=== PATIENT | female | born 1975 | race Caucasian/White ===

== ENCOUNTER 2019-07-22 06:36 | Inpatient (IN) ==
[2019-07-22] MEDS ORDERED: NS 1,000 ML IV ONE ×2 (06:47→06:53)
[2019-07-22] MEDS ORDERED: TYLENOL PO ONE (06:50)
[2019-07-22] MEDS ORDERED: ZITHROMAX 500 MG/NS 500 MG/250 ML IVPB IV ONE (06:56)
[2019-07-22] MEDS ORDERED: ROCEPHIN 1 GM in NS 50 ML IV ONE (06:56)
--- NOTE | 2019-07-22 07:04 | PROVIDER DOCUMENTATION ---
HPI-General Adult - General Chief Complaint: Palpitations Stated Complaint: PALPITATIONS Time Seen by Provider: 07/22/19 06:55 Source: patient Allergies/Adverse Reactions: Patient Allergies Allergy/AdvReac Type Severity Reaction Status Date / Time No Known Allergies Allergy Verified 07/22/19 06:48 - History of Present Illness -Gen Adult Nature of Presenting Problems: A 43 Y/O FEMALE PRESENTS WITH C/O ELEVATED HEART RATE, NOT FEELING GOOD SINCE YESTERDAY. THE PT WAS AT A GAME YESTERDAY DID NOT FEEL GOOD, TRIED TO SLEEP LAST NIGHT AND IT WAS DISTURBED. WOKE UP THIS MORNING AND DID NOT FEEL GREAT AND HAD A ELEVATED HEART RATE. CAME TO WORK SO THAT SHE CAN BE CHECKED BY THE [employer] SHE WORKS A RN IN OR. SHE WAS SENT TO ED FOR FURTHER EVAL. PT IS FEBRILE IN ER, SAYS DOES NOT FEEL GOOD. HAS BEEN HAVING DIARRHEA FOR ONE WEEK, HAS HAD 3 LOOSE BM IN THE LAST 24 HRS. DENIES ANY CP OR SOB. DENIES ANY RECENT ABXS USE. DENIES ANY HEADACHE, LIGHTHEADEDNESS OR DIZZINESS. PT HAS HX OF THYROID CANCER AND HAD A THYROIDECTOMY IN PAST. WAS RECENTLY DX WITH PCKD BY DR PAUL. Location of Pain/Injury: reports: none Pain Radiation: reports: no radiation Review of Systems - Adult - REVIEW OF SYSTEMS - ADULT Constitutional: reports: see HPI, chills, fever Eyes: denies: no symptoms reported Ears, Nose, Mouth & Throat: denies: no symptoms reported Cardiovascular: denies: no symptoms reported Respiratory: denies: no symptoms reported Gastrointestinal: reports: see HPI Genitourinary: reports: see HPI Musculoskeletal: reports: see HPI Integumentary: denies: no symptoms reported Neurological: denies: no symptoms reported Psychiatric: reports: see HPI, anxiety Endocrine: denies: no symptoms reported Hematologic/Lymphatic: denies: no symptoms reported Allergic/Immunologic: denies: no symptoms reported Past History - Adult - PAST MEDICAL HISTORY-ADULT Review of Records: reports: Old Records Reviewed, Nursing Assessment Review, Medications Reviewed, Social history reviewed & non-contributory. Physical Exam-General - PHYSICAL EXAM-ADULT Initial Vital Signs Reviewed: Yes - CONSTITUTIONAL General Appearance: alert, mild distress, anxious - EYES Eyes: PERRL/EOMI - HEAD, EARS, NOSE, MOUTH & THROAT HENMT: normocephalic/atraumatic, moist mucous membranes, normal ENT inspection, TMs normal, pharynx normal - NECK Neck: supple - RESPIRATORY Respiratory: lungs clear, normal breath sounds, no respiratory distress, no accessory muscle use - CARDIOVASCULAR Cardiovascular: no JVD, no murmur, tachycardia - GASTROINTESTINAL (ABDOMEN) Abdominal Exam: normal bowel sounds, non tender, soft - MUSCULOSKELETAL Back Exam: no vertebral tenderness, CVA tenderness Extremity: no pedal edema, no calf tenderness Peripheral Pulses: radial (R): 2+, radial (L): 2+ - SKIN Integumentary: normal color, warm/dry - NEUROLOGIC Neurologic: grossly normal - PSYCHIATRIC Psych/Mental Status: normal thought content, normal thought process, oriented x 3, anxious Progress - PLAN OF CARE/RESULTS Progress/Plan/Lab Results: Vital Signs - 8 hr 07/22/19 06:37 Temperature 101.9 F H Pulse Rate 116 H Respiratory Rate 18 Blood Pressure 149/88 O2 Sat by Pulse Oximetry 94 L Orders Category Date Time Status CHEST-PORTABLE [RAD] Stat Exams 07/22/19 06:46 Taken BLOOD CULTURE [BLDCUL] Stat Lab 07/22/19 06:46 Uncollected C DIFF TOXIN [STOOL] Stat Lab 07/22/19 06:52 Uncollected CBC WITH DIFF [HEME] Stat Lab 07/22/19 06:52 Ordered COMPREHENSIVE METABOLIC PANEL [CHEM] Stat Lab 07/22/19 06:52 Ordered DIRECT STREP Stat Lab 07/22/19 06:50 Ordered INFLUENZA SCREEN A/B Stat Lab 07/22/19 06:50 Uncollected LACTATE, PLASMA [CHEM] Stat Lab 07/22/19 06:52 Ordered UA NIMS W/REFLEX CULT [URINALYSIS] Stat Lab 07/22/19 06:46 Uncollected 0.9% Sodium Chloride Inj [Ns] 1,000 ml Med 07/22/19 06:47 Active IV 999 mls/hr 0.9% Sodium Chloride Inj [Ns] 1,000 ml Med 07/22/19 06:53 Active IV 999 mls/hr Acetaminophen [Tylenol] Med 07/22/19 06:50 Discontinued 1,000 mg PO NOW ONE Azithromycin 500 mg/Ns [Zithromax 500 mg/Ns] Med 07/22/19 06:56 Ordered 500 mg in 250 ml IV NOW Rocephin 1 gm/Ns IV Now Med 07/22/19 06:56 Ordered CefTRIAXONE [Rocephin] 1 gm 0.9% Sodium Chloride Inj [Ns] 50 ml IV NOW EKG [EKG] Stat Ther 07/22/19 06:47 Ordered Result Diagrams: 07/22/19 06:42 07/22/19 06:42 - REASSESSMENT Reassessment #1 Time Reassessed: 07:58 Status: improving (Seen and examined by me at shift change, case discussed with Dr. Hammond. 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 Given 2L of IVF, IV toradol and po acetaminophen, IV Rocephin/zithromax/vanc. Has pneumonia and sepsis, but not severe sepsis as there is no) - XRAY 1 XRAY Study: Chest Impression: Abnormal, See EMR Report (CHEST-PORTABLE - 07/22/2019 INDICATION: chest pain COMPARISON: None FINDINGS: There are ill-defined infiltrates in both lung bases. Heart size and pulmonary vascularity is normal. No pneumothorax or pleural effusion. IMPRESSION: Bibasilar infiltrates suggestive of bronchopneumonia. Correlate clinically. Electronically signed by Sy Markham 07/22/2019 7:30 AM 07/22/19729 Interpreting Physician: Sy Markham MD Dictated Date/Time: 07/22/19729 cc: Micky Hammond MD; Liam Cullen) - CONSULTS/PCP/HOSPITALIST Notification #1 *Consult/PCP/Hospitalist*: ERICKSON Nazario hospitalist Time Discussed: 08:02 Consult Disposition: Admit (to Dr. Carlton) - CHANGE OF SHIFT REPORT (ED Provider) 1 Report Given and Care Transferred to:: DR VILLALPANDO Time of Transfer: 07:00 Items Pending: Labs, XRAY Results Departure - Departure Date of Disposition Decision: 07/22/19 Time of Disposition Decision: 08:02 DIAGNOSIS: Community acquired bilateral lower lobe pneumonia Sepsis without acute organ dysfunction Qualifiers: Sepsis type: sepsis due to unspecified organism Qualified Code(s): A41.9 - Sepsis, unspecified organism Disposition: ADMITTED INPATIENT 09 Certified Medical Emergency: Emergent Condition: Fair Referrals and Follow-Ups: Liam Cullen [Primary Care Provider] - - Critical Care Note This patient required my direct & personal management of CC.: Yes Total Time (mins): 35 (patient with sepsis, treatment for PNE, multiple abx) Critical Care Statement: This patient required my direct personal management to treat or rule out processes, the absence of which, could potentiallly result in sudden, clinically significant life or limb threatening deterioration. Attestation - Physician/ CONNIE Attestation Patient care was provided by Advanced Practice Provider:: No The physician spent face to face time with patient:: Yes Advanced Practice Provider documentation review:: Supervising physician onsite and consulted in the evaluation and care of this patient. The physician did have a face to face encounter with the patient.
[2019-07-22 07:12] LABS: URINE SOURCE CATH
[2019-07-22 07:24] LABS: BILIRUBIN URINE SMALL (NEGATIVE); BLOOD URINE SMALL (NEGATIVE); COLOR YELLOW; GLUCOSE URINE NEGATIVE (NEGATIVE); KETONE URINE NEGATIVE (NEGATIVE); LEUKOCYTES URINE NEGATIVE (NEGATIVE); NITRITE URINE NEGATIVE (NEGATIVE); PROTEIN URINE 100 mg/dL (NEGATIVE); SP GRAVITY URINE 1.029; TURBIDITY URINE HAZY (CLEAR); UROBILINOGEN URINE 8 mg/dL (NORMAL)
[2019-07-22 07:29] LABS: UR EPITHELIAL CELLS >10 /HPF (<10); URINE BACTERIA 1+ /HPF; URINE RBC <10 /HPF (<10); URINE WBC <10 /HPF (<10)
--- NOTE | 2019-07-22 07:32 | Diag Imaging Result Doc PS360 ---
CHEST-PORTABLE - 07/22/2019 INDICATION: chest pain COMPARISON: None FINDINGS: There are ill-defined infiltrates in both lung bases. Heart size and pulmonary vascularity is normal. No pneumothorax or pleural effusion. IMPRESSION: Bibasilar infiltrates suggestive of bronchopneumonia. Correlate clinically. Electronically signed by Sy Markham 07/22/2019 7:30 AM
[2019-07-22 07:37] LABS: BASO# 0.02 X1000 (0.0-0.2); BASO% 0.1 % (0.0-0.8); HEMATOCRIT 35.8 % (37.0-47.0); HEMOGLOBIN 12.5 g/dL (12.0-16.0); IMM GRAN% 0.6 % (0.0-0.5); LYMPH# 0.95 X1000 (1.2-3.4); LYMPH% 5.5 % (20.5-51.1); MCH 28.9 PG (27-31); MCHC 34.9 g/dL (33-37); MCV 82.7 FL (81-99); MONO# 0.51 X1000 (0.11-0.59); MPV 11.7 FL (7.4-10.4); NEUT# 15.68 X1000 (1.4-6.5); NEUT% 90.8 % (42.2-75.2); PLT 376 X1000 (130-400); RBC 4.33 XMIL (4.2-5.4); RDW 13.3 % (11.5-14.5); WBC 17.26 X1000 (4.8-10.8)
--- NOTE | 2019-07-22 07:39 | EKG Report ---
Test Performed on : 07/22/2019 06:35:04 AM Test Reason : PALPITATIONS Blood Pressure : / mmHG Vent. Rate : 123 BPM Atrial Rate : 123 BPM P-R Int : 130 ms QRS Dur : 088 ms QT Int : 318 ms P-R-T Axes : 073 073 042 degrees QTc Int : 455 ms Sinus tachycardia. Possible Left atrial enlargement Septal infarct , age undetermined Abnormal ECG No previous ECGs available Unconfirmed Result
[2019-07-22 07:40] LABS: URINE CASTS NONE SEEN; URINE CRYSTALS NONE SEEN; URINE SMALL ROUND CELLS NONE SEEN; URINE YEAST NONE SEEN
[2019-07-22 07:48] LABS: AGAP 15; ALB/GLOB RATIO 0.8; ALBUMIN 3.4 g/dL (3.5-5.0); ALKALINE PHOSPHATASE 312 U/L (32-104); BUN 15 mg/dL (8-22); CALCIUM 9.5 mg/dL (8.8-10.2); CHLORIDE 96 mmol/L (98-107); COSMO 266; CREATININE 0.7 mg/dL (0.5-0.9); ESTIMATED GFR > 60; GLUCOSE 105 mg/dL (70-104); GOT 46 U/L (10-30); GPT 38 U/L (10-36); POTASSIUM 3.7 mmol/L (3.5-5.1); SODIUM 132 mmol/L (136-145); TCO2 21 mmol/L (25-35); TOTAL PROTEIN 7.5 g/dL (6.3-8.3)
[2019-07-22] MEDS ORDERED: VANCOMYCIN 1 GM/NS 1 GM/250 ML IVPB IV ONE (07:56)
[2019-07-22 08:14] LABS: LYMPHS 3 % (21-51); MONO 3 % (1-9); SEGS 94 % (42-75)
--- NOTE | 2019-07-22 09:14 | HISTORY AND PHYSICAL ---
PRIMARY CARE PHYSICIAN: Dr. Liam Cullen. CHIEF COMPLAINT: A racing heart rate, headache, shortness of breath and diarrhea for the past week that has progressively worsened. 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 Stated that she had an elevated heart rate, shortness of breath, a fever, diarrhea over the last week that had progressively worsened. When she arrived to the emergency room this morning, she had a temperature of 101.9 degrees, heart rate was 116. She was saturating 94% on room air. Her white blood cell count was 17.26, sodium 132. She had a mild bump in her LFTs with an AST of 46, ALT of 38. Plasma lactate was 1.5. A chest x-ray showed an impression of bibasilar infiltrates suggestive of bronchopneumonia, so she will be admitted for further evaluation and treatment. PAST MEDICAL HISTORY: Thyroid cancer, and this past Thursday was diagnosed by Nephrology with polycystic kidney disease. PAST SURGICAL HISTORY: Thyroidectomy, a bilateral tubal ligation, a breast augmentation and a back surgery. FAMILY HISTORY: Reviewed and noncontributory. SOCIAL HISTORY: She currently lives with her children. Denies any tobacco, alcohol or illicit drug use. ALLERGIES: She has no known drug allergies. HOME MEDICATIONS: We will need to obtain a current list, review and reconcile and restart as appropriate. We will place an order for nursing to update and confirm home medications. LABORATORY DATA: Showed a white blood cell count of 17.26, hemoglobin 12.5, hematocrit 35.8, platelets 376,000. Sodium 132, potassium 3.7, chloride 96, CO2 21, BUN of 15, creatinine 0.7, glucose 105. Total bilirubin 1.20, AST 46, ALT 38, alkaline phosphatase 312. Plasma lactate was 1.5. Urinalysis is negative except for 1+ bacteria. Chest x-ray showed bibasilar infiltrates suggestive of bronchopneumonia. EKG showed sinus tachycardia at 123. REVIEW OF SYSTEMS: She was positive for fever, chills, body aches. Denied any chest pain or cough. She has had shortness of breath. Denied any abdominal pain, constipation. She is positive for diarrhea. No burning or hurting on urination. PHYSICAL EXAMINATION: VITAL SIGNS: On arrival, she had a temperature of 101.9 degrees, pulse 116, respirations 18, blood pressure 149/88, saturating 94% on room air. GENERAL: This is a 43-year-old female who is lying in the bed and answers questions appropriately. HEENT: Normocephalic, atraumatic. Normal ENT inspection. Oropharynx and nares are clear. EYES: Pupils are equal, round, reactive to light and accommodation. Extraocular movements are intact. NECK: Normal inspection. Normal range of motion. LUNGS: With decreased breath sounds to bilateral bases. Equal lung expansion. Chest wall movement noted. HEART: She is noted to be tachycardic but no murmurs, rubs, or gallops noted. ABDOMEN: Soft, nontender, nondistended. Bowel sounds are present x4 quadrants. MUSCULOSKELETAL: She has 5/5 strength x4 extremities. NEUROLOGICAL: The cranial nerves 2-12 appear grossly intact. ASSESSMENT: 1. Sepsis. 2. Bilateral bronchopneumonia. 3. Mild hyponatremia. 4. Mild elevated liver function tests. PLAN: She will be admitted to the medical unit, placed on telemetry, regular diet, incentive spirometry. We will check a Legionella and strep pneumoniae urine and hepatitis profile today. We will place her on Rocephin 1 gram IV q.24, azithromycin 500 IV q.24, DuoNeb q.4 hours, normal saline at 125 mL an hour. We will check an abdomen ultrasound. We will check a stool for Clostridium difficile toxin and recheck CBC, BMP in the a.m. Give her Tylenol 650 mg p.o. q.4 hours for fever, pain, and further orders after seen by attending. Dictated by ERICKSON Hartman for Ovidio Carlton MD cc: ERICKSON Hartman MD agree with the above. the following is my own face to face assessment. patient with crackles at the right base, slightly decreased at the left base. good air entry otherwise. flu swab negative. placing on abx and monitor closely. MTDD
[2019-07-22] MEDS: ULTRAM PO PRN ×3 (10:37→22:53)
[2019-07-22] MEDS: DUONEB (A & A) INH SCH ×4 (11:40→23:21)
[2019-07-22] MEDS: NS 1,000 ML IV SCH ×3 (13:37→23:49)
--- NOTE | 2019-07-22 17:10 | Diag Imaging Result Doc PS360 ---
EXAM: US ABDOMEN-COMPLETE INDICATION: Elevated LFT COMPARISON: None. FINDINGS: The gallbladder appears normal with no stones, wall thickening, or pericholecystic fluid. The common bile duct is normal in diameter. Sonographic Dickerson's sign was reported to be negative. The liver is mildly prominent measuring up to 19.8 cm in length. The liver has a normal echotexture with no discrete mass or cyst identified. Portal venous flow is hepatopetal. The visualized pancreas is unremarkable. The aorta and IVC are grossly unremarkable. The spleen is unremarkable. There are a few small simple renal cysts bilaterally. The kidneys are unremarkable, otherwise. IMPRESSION: Mildly prominent liver. Essentially unremarkable abdominal ultrasound, otherwise. Electronically signed by Kd Lechuga 07/22/2019 5:08 PM
[2019-07-22] MEDS: TYLENOL PO PRN (18:56)
[2019-07-23] MEDS: DUONEB (A & A) INH SCH ×6 (03:51→23:26)
[2019-07-23 05:41] LABS: BASO# 0.01 X1000 (0.0-0.2); BASO% 0.1 % (0.0-0.8); EOS# 0.03 X1000 (0.0-0.7); EOS% 0.2 % (0.0-10.0); HEMATOCRIT 28.6 % (37.0-47.0); HEMOGLOBIN 9.5 g/dL (12.0-16.0); IMM GRAN# 0.03 X1000 (0.0-0.04); IMM GRAN% 0.2 % (0.0-0.5); LYMPH# 0.98 X1000 (1.2-3.4); LYMPH% 7.9 % (20.5-51.1); MCH 28.1 PG (27-31); MCHC 33.2 g/dL (33-37); MCV 84.6 FL (81-99); MONO# 0.28 X1000 (0.11-0.59); MONO% 2.3 % (1.7-9.3); MPV 11.4 FL (7.4-10.4); NEUT# 11.02 X1000 (1.4-6.5); NEUT% 89.3 % (42.2-75.2); PLT 320 X1000 (130-400); RBC 3.38 XMIL (4.2-5.4); RDW 13.6 % (11.5-14.5); WBC 12.35 X1000 (4.8-10.8)
[2019-07-23] MEDS: NS 1,000 ML IV SCH ×3 (05:52→18:07)
[2019-07-23 06:24] LABS: AGAP 13; BUN 11 mg/dL (8-22); CHLORIDE 106 mmol/L (98-107); COSMO 284; CREATININE 0.5 mg/dL (0.5-0.9); ESTIMATED GFR > 60; GLUCOSE 100 mg/dL (70-104); POTASSIUM 3.8 mmol/L (3.5-5.1); SODIUM 143 mmol/L (136-145); TCO2 24 mmol/L (25-35)
[2019-07-23 07:24] LABS: LYMPHS 8 % (21-51); MONO 3 % (1-9); SEGS 89 % (42-75)
[2019-07-23] MEDS ORDERED: ROCEPHIN 1 GM in NS 50 ML IV SCH (07:30)
[2019-07-23] MEDS ORDERED: ZITHROMAX 500 MG/NS 500 MG/250 ML IVPB IV SCH (08:00)
[2019-07-23] MEDS: ULTRAM PO PRN (08:50)
[2019-07-23] MEDS ORDERED: VANCOMYCIN IV PER PHARMACY MISC SCH (11:45)
[2019-07-23] MEDS ORDERED: DUONEB (A & A) INH PRN (12:01)
[2019-07-23 12:04] LABS: ALB/GLOB RATIO 0.9; ALBUMIN 2.7 g/dL (3.5-5.0); DIRECT BILIRUBIN 0.3 mg/dL (0.00-0.20); TOTAL BILIRUBIN 0.69 mg/dL (0.20-1.00); TOTAL PROTEIN 5.6 g/dL (6.3-8.3)
[2019-07-23] MEDS ORDERED: VANCOMYCIN 1,550 MG in NS 250 ML IV ONE (13:00)
[2019-07-23 13:04] LABS: HEMATOCRIT 26.8 % (37.0-47.0); HEMOGLOBIN 9.2 g/dL (12.0-16.0)
--- NOTE | 2019-07-23 13:30 | Diag Imaging Result Doc PS360 ---
EXAM: CHEST-PORTABLE INDICATION: hypoxia, cough TECHNIQUE: One view COMPARISON: 07/22/2019 FINDINGS: There has been significant interval worsening of the airspace consolidations with a basilar predominance seen on the previous study, especially at the right lung base. No other new consolidation is identified. Cardiac silhouette is stable. IMPRESSION: Interval significant worsening of bilateral airspace consolidations. Electronically signed by Kd Lechuga 07/23/2019 1:28 PM
[2019-07-23] MEDS: SYNTHROID PO SCH (13:50)
[2019-07-23] MEDS: MAXIPIME 2 GM in NS 100 ML IV SCH ×2 (13:50→22:43)
[2019-07-23] MEDS: PERCOCET-10 PO PRN ×3 (13:57→22:49)
[2019-07-23] MEDS: ZOFRAN IV PRN ×3 (13:57→22:53)
--- NOTE | 2019-07-23 16:03 | PROGRESS NOTE ---
DATE: 07/23/2019 INTERVAL HISTORY: The patient did well overnight, but this morning has had increased oxygen requirements. She had to be put on non-rebreather. Stat chest x-ray obtained showing significant worsening of pneumonia, especially on the right, but some on the left as well. One low-grade fever overnight which was less than she had on admission, but concern is for worsening bilateral pneumonia. Antibiotics changed to vancomycin and cefepime. Monitor closely, and if respiratory status worsens any further will likely move to the ICU. The patient continues to endorse general malaise, achiness, and cough. The patient was complaining of diarrhea on admission, but has had no bowel movement since arrival. REVIEW OF SYSTEMS: Twelve-point review of systems negative except as per interval history. LABORATORIES: WBC 12.3, hemoglobin 9.2, hematocrit 26.8, platelets 320,000. Sodium 143, potassium 3.8, bicarb 24, chloride 106, BUN 11, creatinine 0, glucose 100, bilirubin 0.69, AST 26, ALT 27, alkaline phosphatase 248. IMAGING: Chest x-ray with interval significant worsening of bilateral airspace consolidations. VITALS: T-max 100.0 degrees, pulse 88, respirations 18, blood pressure 119/70, and O2 saturation 94% on nonrebreather. PHYSICAL EXAMINATION: General: Slight distress. Vitals: As above. HEENT: Normocephalic, atraumatic. Moist mucous membranes. neck: No cervical adenopathy. Cardiovascular: Regular rate and rhythm. No murmurs, rubs, or gallops. Pulmonary: Significant rales in bilateral lower lobes. Scattered rales and rhonchi elsewhere. Good air entry. Abdomen: Soft, nontender, nondistended. Bowel sounds positive. Extremities: Peripheral pulses intact. No clubbing, cyanosis. Neurologic: Cranial nerves grossly intact. Mild global weakness, but no focal deficits. Psychiatric: Normal mood and affect. Awake, alert, oriented x3. Skin: No rashes or lesions identified. ASSESSMENT AND PLAN: 1. Acute hypoxic respiratory failure, pneumonia. The patient presented with dyspnea and cough. She was found to have pneumonia. She was placed on Rocephin and azithromycin for presumed community-acquired pneumonia, but had significant worsening today with significantly-worsened hypoxia and worsened infiltrates on x-ray despite improvement in white count and temperature. Antibiotics changed to cefepime and vancomycin as above. Urine, Legionella, and strep pneumo antigens pending. Continue oxygen as needed, and if any further worsening of her respiratory condition we will plan on moving to the ICU for closer monitoring. Blood cultures: No growth so far. 2. Flu-like illness. The patient presenting with dyspnea, cough, myalgias, and some minor gastrointestinal symptoms. Flu screen negative, but given flu-like symptoms and worsening illness we will go ahead and place her on Tamiflu for possible influenza. 3. Elevated liver function tests likely due to illness trending down. Hepatitis panel pending, but no risk factors identified for hepatitis. Ultrasound showing normal echotexture of the liver with no masses or other significant abnormality. We will monitor. 4. Polycystic kidney disease, recent diagnosis. Kidney function normal and stable. 5. Diarrhea. Complained of diarrhea prior to admission, but has had no bowel movement since arrival here.
[2019-07-23] MEDS: TAMIFLU PO SCH (20:03)
[2019-07-24] MEDS: VANCOMYCIN 1,150 MG in NS 250 ML IV SCH ×2 (00:55→13:30)
[2019-07-24] MEDS: PERCOCET-10 PO PRN ×4 (03:37→19:56)
[2019-07-24] MEDS: ZOFRAN IV PRN ×4 (03:37→19:57)
[2019-07-24] MEDS: NS 1,000 ML IV SCH ×2 (03:41→10:59)
[2019-07-24] MEDS: DUONEB (A & A) INH SCH ×6 (04:05→23:14)
[2019-07-24] MEDS: SYNTHROID PO SCH (06:08)
[2019-07-24 07:54] LABS: BASO# 0.02 X1000 (0.0-0.2); BASO% 0.2 % (0.0-0.8); EOS# 0.06 X1000 (0.0-0.7); EOS% 0.5 % (0.0-10.0); HEMATOCRIT 30.1 % (37.0-47.0); HEMOGLOBIN 10.3 g/dL (12.0-16.0); IMM GRAN# 0.05 X1000 (0.0-0.04); IMM GRAN% 0.4 % (0.0-0.5); LYMPH# 0.71 X1000 (1.2-3.4); LYMPH% 5.5 % (20.5-51.1); MCH 28.6 PG (27-31); MCHC 34.2 g/dL (33-37); MCV 83.6 FL (81-99); MONO# 0.47 X1000 (0.11-0.59); MONO% 3.6 % (1.7-9.3); MPV 10.6 FL (7.4-10.4); NEUT# 11.63 X1000 (1.4-6.5); NEUT% 89.8 % (42.2-75.2); PLT 415 X1000 (130-400); RDW 13.8 % (11.5-14.5); WBC 12.94 X1000 (4.8-10.8)
[2019-07-24 08:02] LABS: AGAP 11; ALB/GLOB RATIO 0.8; ALBUMIN 2.8 g/dL (3.5-5.0); ALKALINE PHOSPHATASE 264 U/L (32-104); BUN 8 mg/dL (8-22); CALCIUM 8.4 mg/dL (8.8-10.2); CHLORIDE 101 mmol/L (98-107); COSMO 271; CREATININE 0.5 mg/dL (0.5-0.9); ESTIMATED GFR > 60; GLUCOSE 86 mg/dL (70-104); GOT 22 U/L (10-30); GPT 25 U/L (10-36); POTASSIUM 3.6 mmol/L (3.5-5.1); SODIUM 137 mmol/L (136-145); TCO2 25 mmol/L (25-35); TOTAL BILIRUBIN 0.74 mg/dL (0.20-1.00); TOTAL PROTEIN 6.1 g/dL (6.3-8.3)
[2019-07-24 08:35] LABS: HEPATITIS PROFILE ACUTE SEE COMMENTS
[2019-07-24 09:37] LABS: BANDS 8 % (0-1); LYMPHS 6 % (21-51); MONO 4 % (1-9); SEGS 82 % (42-75)
[2019-07-24] MEDS: TAMIFLU PO SCH ×2 (09:37→19:56)
[2019-07-24] MEDS: MAXIPIME 2 GM in NS 100 ML IV SCH (11:59)
--- NOTE | 2019-07-24 16:15 | PROGRESS NOTE ---
DATE: 07/24/[address] Liam Cullen. She came in with racing heart, headache, shortness of breath, diarrhea for a week progressively worsened. 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 Stated that she had elevated heart rate, shortness of breath, fever, diarrhea, progressively worse since he arrived the emergency room, had temperature 101.9 degrees, heart rate was 116, O2 saturations were 94% on room air. White blood cell count . Sodium 132, had a mild bump in her transaminases, AST was 46, ALT 38. Plasma lactate was 1.5. Chest x-ray showed impression of bibasilar infiltrates suggesting bronchopneumonia and was admitted for further evaluation. PAST MEDICAL HISTORY: Thyroid cancer diagnosed by Nephrology with polycystic kidney disease recently. SURGICAL HISTORY: Status post thyroidectomy, status post bilateral tubal ligation, breast augmentation, back surgery. So presented what appeared to be infection, possible sepsis, bilateral bronchopneumonia and some mild hyponatremia, elevation liver function test. EXAM: Today, remains afebrile, temperature 98 degrees, pulse 113, respirations 25, blood pressure 127/80. Pupils are equal round.Lungs: Clear in all lung milian. Cardiovascular: Regular rhythm and rate without murmur or S3. Abdomen: Soft. Skin: Warm and dry. Urine output 2200 mL. ASSESSMENT AND PLAN: 1. Acute hypoxic respiratory failure with pneumonia. The patient presented with dyspnea and cough, was found to have pneumonia, placed on Rocephin and azithromycin for presumed community- acquired pneumonia. Had significant worsening when she got here, worsened infiltrates on x- ray despite improvement white blood cell count, temperature. Antibiotics changed to cefepime and vancomycin. Urine Legionella and strep pneumonia antigens pending. Continue present treatment. 2. Flu-like illness presented with dyspnea, cough, myalgias and some minor gastrointestinal symptoms. Flu screen was negative. Flu-like symptoms and worsening illness. We did put her on Tamiflu. 3. Elevated liver function tests due to illness. She has no risk factors for hepatitis. Ultrasound showed normal echotexture of the liver, no masses or significant abnormality. 4. Polycystic disease recent illness. Kidney function normal and stable. 5. Diarrhea, suspect she has a viral illness. 6. Review of her orders she is getting DuoNeb, she is on Synthroid 112 mcg daily, cefepime 2 g IV q.12, normal saline at 125 mL an hour, Tamiflu 75 mg b.i.d., vancomycin 1550 mg IV q.12 and she is improving. LAB: Review of her lab today white count is down to 12,940, hematocrit is 30, hemoglobin 10, platelet count 412,000. Sodium 137, potassium 3.6, chloride 101, BUN 8, creatinine 0.5. Transaminases have come down nicely. cc: Froy Colon MD MTDD
[2019-07-25] MEDS: MAXIPIME 2 GM in NS 100 ML IV SCH ×3 (00:22→23:18)
[2019-07-25] MEDS: TAMIFLU PO SCH ×3 (01:26→20:21)
[2019-07-25] MEDS: VANCOMYCIN 1,150 MG in NS 250 ML IV SCH (02:08)
[2019-07-25] MEDS: NS 1,000 ML IV SCH ×6 (02:09→18:29)
[2019-07-25] MEDS: ZOFRAN IV PRN ×5 (02:52→23:22)
[2019-07-25] MEDS: PERCOCET-10 PO PRN ×5 (02:52→23:18)
[2019-07-25] MEDS: DUONEB (A & A) INH SCH ×6 (03:34→22:35)
[2019-07-25] MEDS: SYNTHROID PO SCH (06:18)
[2019-07-25 06:30] LABS: BASO# 0.02 X1000 (0.0-0.2); BASO% 0.1 % (0.0-0.8); EOS# 0.09 X1000 (0.0-0.7); EOS% 0.6 % (0.0-10.0); HEMATOCRIT 29.8 % (37.0-47.0); HEMOGLOBIN 10.3 g/dL (12.0-16.0); IMM GRAN# 0.08 X1000 (0.0-0.04); IMM GRAN% 0.5 % (0.0-0.5); LYMPH# 0.52 X1000 (1.2-3.4); LYMPH% 3.5 % (20.5-51.1); MCH 28.5 PG (27-31); MCHC 34.6 g/dL (33-37); MCV 82.3 FL (81-99); MONO# 0.76 X1000 (0.11-0.59); MONO% 5.2 % (1.7-9.3); MPV 10.6 FL (7.4-10.4); NEUT# 13.21 X1000 (1.4-6.5); NEUT% 90.1 % (42.2-75.2); PLT 510 X1000 (130-400); RBC 3.62 XMIL (4.2-5.4); RDW 13.9 % (11.5-14.5); WBC 14.68 X1000 (4.8-10.8)
[2019-07-25 06:38] LABS: AGAP 15; ALB/GLOB RATIO 0.8; ALBUMIN 2.5 g/dL (3.5-5.0); ALKALINE PHOSPHATASE 248 U/L (32-104); BUN 8 mg/dL (8-22); CALCIUM 8.3 mg/dL (8.8-10.2); CHLORIDE 101 mmol/L (98-107); COSMO 273; CREATININE 0.4 mg/dL (0.5-0.9); ESTIMATED GFR > 60; GLUCOSE 81 mg/dL (70-104); GOT 24 U/L (10-30); GPT 22 U/L (10-36); POTASSIUM 3.4 mmol/L (3.5-5.1); SODIUM 138 mmol/L (136-145); TCO2 22 mmol/L (25-35); TOTAL BILIRUBIN 0.72 mg/dL (0.20-1.00); TOTAL PROTEIN 5.7 g/dL (6.3-8.3)
[2019-07-25 07:40] LABS: BANDS 8 % (0-1); HYPOCHROM 1+; LYMPHS 4 % (21-51); MONO 12 % (1-9); SEGS 74 % (42-75)
[2019-07-25] MEDS ORDERED: VANCOMYCIN 1,500 MG in NS 250 ML IV ONE (13:00)
--- NOTE | 2019-07-25 13:08 | PROGRESS NOTE ---
DATE: 07/25/2019 SUBJECTIVE: She does feel better, a little stronger. Still feels like she needs a little more time. OBJECTIVE: Vital Signs: Temperature 98.5 degrees, pulse 113, respirations 20, blood pressure 146/90. HEENT: Pupils are equal, round. Lungs: Clear in all lung milian. Cardiovascular: Regular rate without murmur or S3. Abdomen: Soft. Skin: Warm and dry. Urine output is 1300 mL. ASSESSMENT AND PLAN: 1. Acute hypoxemic respiratory failure with pneumonia. Patient presented with dyspnea and cough, found to have pneumonia. On Rocephin and azithromycin for presumed community-acquired pneumonia. She seems to be doing better. 2. Flu-like illness. Dyspnea. Cough, mild malaise, doing better. She is on Tamiflu. 3. Elevated liver function tests. This improved. Ultrasound showed normal echotexture. 4. Polycystic kidney disease. Renal function stable. 5. Diarrhea. 6. Review of orders. She is improving. Continue present therapy. Hopefully home soon. cc: Froy Colon MD
[2019-07-26] MEDS: VANCOMYCIN 1,500 MG in NS 250 ML IV SCH ×2 (00:02→13:43)
[2019-07-26] MEDS: DUONEB (A & A) INH SCH ×6 (02:52→23:03)
[2019-07-26] MEDS: PERCOCET-10 PO PRN ×4 (03:57→20:14)
[2019-07-26] MEDS: ZOFRAN IV PRN ×4 (03:57→20:27)
[2019-07-26] MEDS: NS 1,000 ML IV SCH ×3 (04:56→17:53)
[2019-07-26] MEDS: SYNTHROID PO SCH (05:59)
[2019-07-26 07:49] LABS: AGAP 11; ALB/GLOB RATIO 0.8; ALBUMIN 2.6 g/dL (3.5-5.0); ALKALINE PHOSPHATASE 328 U/L (32-104); BUN 7 mg/dL (8-22); CALCIUM 8.3 mg/dL (8.8-10.2); CHLORIDE 102 mmol/L (98-107); COSMO 273; CREATININE 0.4 mg/dL (0.5-0.9); ESTIMATED GFR > 60; GLUCOSE 89 mg/dL (70-104); POTASSIUM 3.4 mmol/L (3.5-5.1); SODIUM 138 mmol/L (136-145); TCO2 25 mmol/L (25-35); TOTAL BILIRUBIN 0.75 mg/dL (0.20-1.00)
[2019-07-26 07:50] LABS: GOT 24 U/L (10-30); GPT 18 U/L (10-36)
[2019-07-26 07:59] LABS: BASO# 0.03 X1000 (0.0-0.2); BASO% 0.2 % (0.0-0.8); EOS# 0.23 X1000 (0.0-0.7); EOS% 1.3 % (0.0-10.0); HEMATOCRIT 31.5 % (37.0-47.0); IMM GRAN# 0.14 X1000 (0.0-0.04); IMM GRAN% 0.8 % (0.0-0.5); LYMPH# 0.81 X1000 (1.2-3.4); LYMPH% 4.7 % (20.5-51.1); MCH 28.5 PG (27-31); MCHC 34.9 g/dL (33-37); MCV 81.6 FL (81-99); MONO# 0.79 X1000 (0.11-0.59); MONO% 4.6 % (1.7-9.3); MPV 9.7 FL (7.4-10.4); NEUT# 15.19 X1000 (1.4-6.5); NEUT% 88.4 % (42.2-75.2); PLT 630 X1000 (130-400); RBC 3.86 XMIL (4.2-5.4); RDW 14.1 % (11.5-14.5); WBC 17.19 X1000 (4.8-10.8)
[2019-07-26 08:38] LABS: BANDS 8 % (0-1); EOS 4 % (1-10); LYMPHS 2 % (21-51); MONO 8 % (1-9); SEGS 78 % (42-75)
[2019-07-26] MEDS: TAMIFLU PO SCH ×2 (08:54→20:15)
[2019-07-26] MEDS: MAXIPIME 2 GM in NS 100 ML IV SCH (11:29)
[2019-07-26 16:45] LABS: ALLEN TEST YES; BE 1.9 mmoll (-3.0-3.0); BLOOD TYPE ARTERIAL; HCO3-(ACT) 26.4 mmoll (20.0-26.0); METHB 1.3 % (0.0-1.5); MODALITY PRB; O2(CT) 14.4 mL/dL (15.0-23.0); O2HB 94.5 % (95.0-99.0); PCO2(98.6) 36 mmHg (35-45); PO2(98.6) 65 mmHg (60-100); SAMPLE BLOOD; SAO2 97.7 % (95.0-100.0); THB 10.8 g/dL (11.5-17.4); pH(98.6) 7.46 (7.35-7.45)
--- NOTE | 2019-07-26 17:20 | PROGRESS NOTE ---
DATE: 07/26/2019 SUBJECTIVE: I went to see this patient this afternoon and apparently she was in pain. I have checked her chart and apparently her oxygen needs from admission went from her being on room air and sometimes 2 lt NC to now she is requiring a non-rebreather mask and she is tachypneic. The patient also complained of generalized pain. She was receiving at the time of my examination Percocet 10 mg p.o. q.4 hours p.r.n. When I asked her if she takes pain medication on a regular basis or if she has taken pain meds before she got very angry to me. There was a nurse who apparently works with her in the hospital in the surgical center who claimed in front of the patient that I was suggesting that this patient was a drug addict when I was just trying to get more information about her pain medication usage. Also there was a concern from the patient about constipation. OBJECTIVE: Vital Signs: Temperature 99.2 degrees, heart rate 105, respiratory rate 43, blood pressure 135/80, O2 saturation 98% on non-rebreather mask. General Examination: This is a 43- year-old female lying in bed, in moderate distress because of generalized pain. HEENT: Head is normocephalic, atraumatic. Mucous membranes moist. Neck: No JVD noted. No carotid bruits. No lymphadenopathy. Cardiovascular: S1, S2 heard. No murmurs, gallops, or rubs. Regular rate and rhythm. Respiratory: Significant rales in bilateral lower lobes. The patient is not using any accessory muscles or having work of breathing. Abdomen: Soft. Nontender to palpation. Bowel sounds present. No organomegaly. Extremities: No clubbing, cyanosis, or edema. Peripheral pulses present in both legs. Neurological: The patient is alert and oriented x3. Moves 4 extremities. LABORATORY DATA: White cell count 17.19, hemoglobin 11.0, hematocrit 31.5, platelets 630,000. BMP remarkable for potassium 3.4, albumin 2.6. ASSESSMENT AND PLAN: 1. Acute hypoxemic respiratory failure. Patient continues to require high amounts of oxygen. She is requiring a non-rebreather mask. She also tachypneic as well. I think at this time to have a better visualization of the lung anatomy and also to rule out any blood clots, even though there is no family history of that, we are going to order a CT angiogram and we will see what it shows. It is important to remark that on admission she was given ceftriaxone and azithromycin and then antibiotics had been changed to cefepime and vancomycin four days ago, but apparently there has been not too much improvement At this point, I prefer to send this patient to ICU and will consult pulmonary and we will go from there. 2. Flu-like illness. As we mentioned before, patient initially presented to the emergency department with flu-like symptoms. She continues to receive Tamiflu for possible influenza but apparently there has not been too much improvement. I do not know if she is developing influenza pneumonia or not but she is on the correct treatment. 3. Transaminitis. I do not know if that is related to her lung conditions. Those were mildly elevated on admission but back to normal today, but the alkaline phosphatase is still high. There was an order for hepatitis panel; that has returned normal. 4. Polycystic kidney disease. That was recently diagnosed. Kidney function is completely normal. We will continue to monitor. 5. Pain. Patient got really angry when I was asking her about pain medication needs. Actually, she did not let me finish all of my questions regarding if the pain medication that she was receiving in the hospital was controlling her pain or not; apparently it was not. Apparently, she has history of back surgery and she was taking pain medication in the past but according to her, not on a regular basis anymore. In any case, the patient got really angry at me and she prefers to see a different doctor. 6. Disposition. We have consulted pulmonary today. We have order a CT angiogram today. We will see what it shows. Will change attending physicians tomorrow. cc: Jermain Steen MD MTDD
[2019-07-26] MEDS: DULCOLAX PO SCH (17:54)
[2019-07-26] MEDS: MIRALAX PO SCH (17:55)
--- NOTE | 2019-07-26 17:56 | Diag Imaging Result Doc PS360 ---
CT ANGIOGRM PULMONARY ARTERIES - 07/26/2019 INDICATION: sob TECHNIQUE: Axial CT images were obtained after administering intravenous contrast. Coronal MIP images were generated. COMPARISON: Chest x-ray 07/23/2019 FINDINGS: There is no pulmonary embolism. Heart and great vessels are normal. There are moderate to large bilateral pleural effusions. These average about 4.4 cm in depth. There are bilateral breast implants. There is some soft tissue edema and flank edema. There is advanced fatty change of the liver. Otherwise upper abdominal images are unremarkable. There is dense bilateral central infiltrates with prominent air bronchograms. Bones are grossly unremarkable. IMPRESSION: Negative for pulmonary embolism. Severe bilateral infiltrates. Moderately large bilateral pleural effusions. Fatty liver. This exam was performed using automated exposure control, adjustment of mA or kV according to patient size, and/or use of iterative reconstruction technique Electronically signed by Sy Markham 07/26/2019 5:54 PM
[2019-07-27] MEDS: ZOFRAN IV PRN ×5 (00:27→21:50)
[2019-07-27] MEDS: PERCOCET-10 PO PRN ×6 (00:27→21:49)
[2019-07-27] MEDS: NS 1,000 ML IV SCH ×4 (00:28→18:06)
[2019-07-27] MEDS: VANCOMYCIN 1,500 MG in NS 250 ML IV SCH ×2 (00:30→13:39)
[2019-07-27] MEDS: MAXIPIME 2 GM in NS 100 ML IV SCH ×2 (04:48→10:56)
[2019-07-27 04:54] LABS: ALLEN TEST YES; BE 3.9 mmoll (-3.0-3.0); BLOOD TYPE ARTERIAL; HCO3-(ACT) 27.9 mmoll (20.0-26.0); METHB 1.4 % (0.0-1.5); O2(CT) 15.1 mL/dL (15.0-23.0); O2HB 94.7 % (95.0-99.0); PCO2(98.6) 42 mmHg (35-45); PO2(98.6) 75 mmHg (60-100); SAMPLE BLOOD; SAO2 97.8 % (95.0-100.0); THB 11.3 g/dL (11.5-17.4); pH(98.6) 7.44 (7.35-7.45)
[2019-07-27 04:56] LABS: MODALITY NRB
[2019-07-27] MEDS: DUONEB (A & A) INH SCH ×5 (05:40→19:47)
[2019-07-27 05:41] LABS: BASO# 0.05 X1000 (0.0-0.2); BASO% 0.3 % (0.0-0.8); EOS# 0.35 X1000 (0.0-0.7); EOS% 1.9 % (0.0-10.0); HEMATOCRIT 29.6 % (37.0-47.0); HEMOGLOBIN 10.4 g/dL (12.0-16.0); IMM GRAN# 0.25 X1000 (0.0-0.04); IMM GRAN% 1.4 % (0.0-0.5); LYMPH# 0.96 X1000 (1.2-3.4); LYMPH% 5.3 % (20.5-51.1); MCH 28.3 PG (27-31); MCHC 35.1 g/dL (33-37); MCV 80.4 FL (81-99); MONO# 0.86 X1000 (0.11-0.59); MONO% 4.8 % (1.7-9.3); MPV 9.9 FL (7.4-10.4); NEUT# 15.54 X1000 (1.4-6.5); NEUT% 86.3 % (42.2-75.2); PLT 647 X1000 (130-400); RBC 3.68 XMIL (4.2-5.4); WBC 18.01 X1000 (4.8-10.8)
[2019-07-27 05:46] LABS: AGAP 12; BUN 6 mg/dL (8-22); CALCIUM 7.8 mg/dL (8.8-10.2); CHLORIDE 99 mmol/L (98-107); COSMO 271; CREATININE 0.3 mg/dL (0.5-0.9); ESTIMATED GFR > 60; GLUCOSE 91 mg/dL (70-104); POTASSIUM 3.2 mmol/L (3.5-5.1); SODIUM 137 mmol/L (136-145); TCO2 26 mmol/L (25-35)
[2019-07-27 07:08] LABS: LYMPHS 4 % (21-51); MONO 6 % (1-9); SEGS 88 % (42-75)
[2019-07-27 07:09] LABS: HYPOCHROM 1+
[2019-07-27] MEDS: SYNTHROID PO SCH (09:02)
[2019-07-27] MEDS: TAMIFLU PO SCH ×2 (09:03→21:48)
[2019-07-27] MEDS: MIRALAX PO SCH (09:03)
[2019-07-27] MEDS: DULCOLAX PO SCH (09:03)
--- NOTE | 2019-07-27 10:43 | PROGRESS NOTE ---
DATE: 07/27/2019 SUBJECTIVE: The patient is tachypneic. She is talking in complete sentences, but is obviously winded. OBJECTIVE: Vital Signs: Temperature 99.7 degrees, heart rate 112, respiratory rate 28, blood pressure 134/80, and 94% to 100% on non-rebreather. Cardiovascular: Tachy. GI: Soft, nontender, and nondistended. Bowel sounds are positive. LABORATORY DATA: White count 18, hemoglobin and hematocrit 10 and 29, platelets 647,000. A pH 7.44, pCO2 42, PaO2 75, that is on a non-rebreather. Potassium is 3.2. ProBNP is only 462 which is nonspecific and CRP is 351. TSH is 12.4. CT yesterday showed bilateral diffuse infiltrates which look like consolidation, and air bronchograms and moderately large effusions, right greater than left. PROBLEM LIST: 1. Acute hypoxic respiratory failure due to multilobar pneumonia, which is progressing with respiratory failure. She had been on Rocephin and azithromycin, but she was changed to cefepime and vancomycin. I am going to add Levaquin because I think she needs double coverage for Pseudomonas. She is coughing up sputum. We have not cultured that yet. She desats immediately when she took off her oxygen briefly and she went down below 90 within less than a minute. I explained that she has progressive pneumonia, we are going to get Pulmonary and ID to see her. She obviously has a chance of decompensation. I do think she needs a thoracentesis, but I will let Dr. Vargas decide about the timing of that. We can go ahead and do it today if necessary, but I do not think she is stable enough to go down to Radiology to get it done. She has been started on Tamiflu, and the pneumonia does not look like influenza maybe post influenza, but her nasal swab was negative. 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 There is a vaping history. She does not clearly smoke so will avoid pneumonia as a possibility. She is another possible candidate for bronchoscopy, but right now if we pursue that we will end up having to put her on a ventilator, so we will see what Pulmonary says. 2. Steatohepatitis. We will continue to follow her. She has a history of thyroid cancer too, and will have to look at that. 3. Polycystic kidney disease. Again, her kidney function thus far is fairly stable. We will continue to monitor that. 4. Disposition. Prognosis is guarded. I do think that there is a high chance if she progresses further without improvement she will end up on a ventilator, and we discussed that. We will continue to follow closely. cc: Cyrus Elliott MD
[2019-07-27] MEDS: LEVAQUIN 750 MG/D5W 750 MG/150 ML IVPB IV SCH (10:56)
[2019-07-27 11:37] LABS: URINE SOURCE CATH
[2019-07-27 11:49] LABS: BILIRUBIN URINE NEGATIVE (NEGATIVE); BLOOD URINE NEGATIVE (NEGATIVE); COLOR STRAW; GLUCOSE URINE NEGATIVE (NEGATIVE); KETONE URINE 10 mg/dL (NEGATIVE); LEUKOCYTES URINE NEGATIVE (NEGATIVE); NITRITE URINE NEGATIVE (NEGATIVE); PROTEIN URINE NEGATIVE (NEGATIVE); SP GRAVITY URINE 1.008; TURBIDITY URINE CLEAR (CLEAR); UR EPITHELIAL CELLS <10 /HPF (<10); URINE BACTERIA NEGATIVE /HPF; URINE RBC <10 /HPF (<10); URINE WBC <10 /HPF (<10); UROBILINOGEN URINE NORMAL (NORMAL)
[2019-07-27] MEDS: SOLU-MEDROL IV SCH ×2 (13:40→18:06)
[2019-07-27] MEDS: MUCOMYST 20% INH SCH (15:17)
--- NOTE | 2019-07-27 20:01 | INFECTIOUS DISEASE CONSULT REP ---
DATE: 07/27/2019 CONCLUSION: The patient is admitted the hospital with what appears to be an overwhelming pneumonia. This overwhelming pneumonia may be in part due to vaping. RECOMMENDATIONS: I agree with the current antibiotic treatment consisting of vancomycin, cefepime and Levaquin. I have ordered immunoglobulin levels and a pneumococcal antigen. Also, I would suggest, if at all possible, for Dr. Vargas to do a thoracentesis just to get 5 to 10 mL of fluid for diagnostic purposes but not to totally drained either pleural effusion. DISCUSSION: The patient, approximately 9 days ago, became at achy and having chills. She also had a headache and dyspnea and she developed a fever. She also had anorexia. The patient had been vaping. She had some diarrhea, but that cleared. The patient's CT angiogram shows bilateral infiltrates and large bilateral pleural effusions. The patient did not have any evidence of pulmonary emboli. The patient's CBC shows a white count of 18,001, hemoglobin 10.4, and platelet count of 647,000. Blood gases show a pH of 7.44, PO2 of 75 and a pCO2 of 42. Creatinine 0.3. GFR is greater than 60. Alkaline phosphatase is 328. Swab for influenza is negative. Blood and throat cultures are negative. Swab for influenza is negative. REVIEW OF SYSTEMS: Eyes and ears: Her hearing and vision are good. Neck: No stiffness. Respiratory: See present illness. GI: See present illness. : No dysuria or flank pain. Bones, joints and muscles: No swollen joints or muscle aching. Neurologic: No seizures or loss of motor or sensory function. CELL PREPARER HISTORY: She is a 3 para 3, AB 0. PREVIOUS HOSPITALIZATIONS AND OPERATIONS: The patient has had 3 labor and deliveries, a thyroidectomy, a tonsillectomy and breast augmentation. MEDICAL DISEASES: Positive for surgery-induced hypothyroidism. Negative for diabetes mellitus or hypertension. INFECTIOUS DISEASE HISTORY: Positive for UTI. Negative for pneumonia. FAMILY HISTORY: Two members in her family committed suicide, 1 family member had cancer. SOCIAL HISTORY[place] She is from her . she takes Synthroid. She does vape. She occasionally drinks a glass of wine. She works as an operating room nurse. PHYSICAL EXAMINATION: Vital Signs: Temperature was a 100 degrees. It is 98.1 now, pulse 92, respirations 32, blood pressure 153/109. The patient is 5 feet 3 inches tall, weighs 116 pounds. General: This is an ill-appearing, middle-aged female. She is in no acute distress. Head/eyes/ears/nose/throat: She can hear my spoken words and see near objects. There was no white patches on her tongue. Neck: No meningismus. Lungs: Clear to auscultation with some diminished breath sounds in the bases. Cardiac: Heart rate is regular. No murmurs were heard. Abdomen: Soft and nontender. Neurologic: The patient is alert. She can move her extremities. There is no tremor. Her sensation is intact to touch. Her memory as regarding her medical history is intact. Integument: No rash. Thank you for the consult. cc: Javed Barrios MD
[2019-07-28] MEDS: DUONEB (A & A) INH SCH ×6 (00:10→19:22)
[2019-07-28] MEDS: SOLU-MEDROL IV SCH ×4 (00:18→18:10)
[2019-07-28] MEDS: MAXIPIME 2 GM in NS 100 ML IV SCH ×3 (00:18→23:24)
--- NOTE | 2019-07-28 00:23 | CONSULTATION ---
DATE OF CONSULTATION: 07/27/2019 REQUESTING PROVIDER: Dr. Jermain Glover. REASON FOR CONSULTATION: Acute respiratory failure. HISTORY OF PRESENT ILLNESS: This is a 43-year-old female with a medical history of thyroid cancer, polycystic kidney disease, and anxiety. 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 She presented to the ER on 07/22/2019, with a racing heart rate, headache, shortness of breath, and diarrhea for 1 week. Initial work up in the ER revealed bilateral bronchopneumonia, sepsis, and mild hyponatremia, and mild elevated liver function tests. She was initially admitted to the medical floor. Since admission, her respiratory status keeps declining, and this morning she required 100% non-rebreather. She has been developing tachypnea with respiratory rate to 40s since yesterday noon. During my assessment, she is lying in bed, appearing anxious. She states she is feeling better. She reports that she is really tired and she has not slept well for several days. Her current respiratory rate stay 40s with SaO2 between 95 to 97 percent on a non- rebreather 100%. She did pull her mask off for about 30 seconds during my assessment and her oxygen saturation dropped to lower 90s. The patient reports her nose is really dry with bleeding at times. She states that she need clarify that she did not use any pain medicines at home and in the hospital, she is only using the pain medicine prescribed by the doctor. She reports her diarrhea has been resolved and actually she feels like she may have constipation at this time. She still have severe shortness of breath, especially with any activities. She has a dry cough, but no headache or racing heart rate. The patient eventually gets really anxious and becomes tearful. The patient's friend is at the bedside. PAST MEDICAL/SURGICAL HISTORY: 1. Thyroid cancer status post thyroidectomy. 2. Polycystic kidney disease diagnosed recently by Dr. Boo. 3. Anxiety. 4. Bilateral tubal ligation. 5. Breast augmentation. 6. Back surgery. 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 She lives at home with her children. She is a former smoker and quit smoking 20 years ago. She vapes CBD for several months, but not on a daily basis, and she last vaped over two weeks ago. She has no history of alcohol use, and she denied illicit drug use. FAMILY HISTORY: Unknown. ALLERGIES: No known drug allergies. REVIEW OF SYSTEMS: A 10-point review of systems was partially conducted and the pertinent is listed within the noncontributory. PHYSICAL EXAMINATION: Vital Signs: Temperature 98.1 degrees, blood pressure 136/96, pulse 99, respiratory rate 26, oxygen saturation 95% on non-rebreather with FiO2 100%. General: Appeared older than stated age, lying in bed with some respiratory distress noted. HEENT: Atraumatic, normocephalic. Trachea midline. Mucosa pink and moist. Respiratory: Labile tachypnea, increased work of breathing, but no accessory muscle use. Auscultation revealed diminished breathing sounds bilaterally, and early inspiratory crackles bibasilarly. Cardiovascular: Regular rate and rhythm. Gastrointestinal: Soft, nontender, nondistended. Normoactive bowel sounds in all 4 quadrants. Extremities: No pedal edema. No cyanosis. No clubbing. Dorsalis pedis 2+ bilaterally. Neurologic: Alert, oriented x3. Appears anxious and tearful at times. Speech fluent. Able to follow commands. LAB DATA: White blood cell 18.01, hemoglobin 10.4, hematocrit 29.6, platelet 647,000. Sodium 137, potassium 3.2, chloride 99, carbon dioxide 26, BUN 6, creatinine 0.3. Glucose 91. ProBNP 462. ABG, pH 7.44, pCO2 of 42, pO2 of 75, HCO3 is 27.9, base excess 3.9, and oxyhemoglobin 94.7. IMAGING DATA: CT angiogram pulmonary arterials on 07/26/2019, revealed severe bilateral infiltrates, moderate to large bilateral pleural effusions, some soft tissue edema and flank edema, advanced fatty change of the liver, dense bilateral central infiltrates with prominent air bronchograms. ASSESSMENT: This is a 43-year-old female with a medical history of thyroid cancer, polycystic kidney disease, and anxiety. She has been admitted since 07/22/2019 with sepsis, bilateral bronchopneumonia, mild hyponatremia, and mild elevated liver function tests. 1. Acute hypoxemic respiratory failure with Acute respiratory distress syndrome. 2. Possible pneumonia. 3. Moderate to large bilateral pleural effusions. 4. Rule out pulmonary embolism. PLAN: 1. Continue supplemental oxygen as needed. 2. Thoracentesis planned per Dr. Penot. 3. Continue antibiotics and bronchodilators. Start steroid. 4. Follow up with ABG, CBC, BMP, proBNP, blood cultures, sputum culture, and chest x-ray. 5. The Infectious Disease specialist, Dr. Barrios, is on board. 6. Further recommendations pending hospital course. Thank you for the courtesy of this consult. Dictated by ERICKSON Tian for Yaquelin Vargas MD cc: ERICKSON Tian MD [facility]
[2019-07-28] MEDS: NS 1,000 ML IV SCH ×4 (00:25→23:24)
[2019-07-28] MEDS: VANCOMYCIN 1,500 MG in NS 250 ML IV SCH ×2 (01:06→14:09)
[2019-07-28] MEDS: PERCOCET-10 PO PRN ×5 (02:20→20:43)
[2019-07-28] MEDS: ZOFRAN IV PRN ×5 (02:21→20:59)
--- NOTE | 2019-07-28 04:38 | ECHO REPORT ---
ORDER DATE: 07/27/2019 INDICATION: Evaluate for congestive heart failure. FINDINGS: 1. Right atrium appears normal in size at 2.9 cm. 2. Mild tricuspid regurgitation. Right ventricular systolic pressure of 28. 3. Normal right ventricle size and systolic function. 4. No significant pulmonic insufficiency. 5. Normal left atrial size with a dimension of 2.5 cm. 6. No mitral valve prolapse. Trace mitral regurgitation. No mitral stenosis. 7. Normal left ventricle size, end-diastolic dimension of 4 cm. Normal wall thicknesses with a posterior and interventricular septal wall thickness of 0.9 cm each. Normal left ventricle systolic function. Estimated ejection fraction of 65% to 70% with normal wall motion. 8. Aortic valve opens well. It is trileaflet. No evidence of stenosis or insufficiency. 9. Aorta appears normal on visualized segments. 10. There appears to be a small circumferential pericardial effusion with no evidence of tamponade physiology. cc: MD Cyrus Suazo MD
[2019-07-28 05:05] LABS: ALLEN TEST YES; BE 9.1 mmoll (-3.0-3.0); BLOOD TYPE ARTERIAL; METHB 1.3 % (0.0-1.5); O2(CT) 15.7 mL/dL (15.0-23.0); O2HB 96.9 % (95.0-99.0); PCO2(98.6) 40 mmHg (35-45); PO2(98.6) 100 mmHg (60-100); SAMPLE BLOOD; SAO2 99.7 % (95.0-100.0); THB 11.4 g/dL (11.5-17.4); pH(98.6) 7.52 (7.35-7.45)
[2019-07-28 05:07] LABS: MODALITY NRB
[2019-07-28 05:19] LABS: AGAP 11; BUN 8 mg/dL (8-22); CALCIUM 7.8 mg/dL (8.8-10.2); CHLORIDE 100 mmol/L (98-107); COSMO 278; CREATININE 0.3 mg/dL (0.5-0.9); ESTIMATED GFR > 60; GLUCOSE 144 mg/dL (70-104); POTASSIUM 3.3 mmol/L (3.5-5.1); SODIUM 139 mmol/L (136-145); TCO2 28 mmol/L (25-35)
[2019-07-28 05:41] LABS: BASO# 0.02 X1000 (0.0-0.2); BASO% 0.2 % (0.0-0.8); EOS# 0.01 X1000 (0.0-0.7); EOS% 0.1 % (0.0-10.0); HEMATOCRIT 30.4 % (37.0-47.0); HEMOGLOBIN 10.6 g/dL (12.0-16.0); IMM GRAN% 1.9 % (0.0-0.5); LYMPH% 5.6 % (20.5-51.1); MCH 28.2 PG (27-31); MCHC 34.9 g/dL (33-37); MCV 80.9 FL (81-99); MONO# 0.22 X1000 (0.11-0.59); MPV 9.2 FL (7.4-10.4); NEUT# 9.72 X1000 (1.4-6.5); NEUT% 90.2 % (42.2-75.2); PLT 642 X1000 (130-400); RBC 3.76 XMIL (4.2-5.4); RDW 14.3 % (11.5-14.5); WBC 10.77 X1000 (4.8-10.8)
[2019-07-28] MEDS: LOVENOX SUBQ SCH (06:15)
[2019-07-28] MEDS: MUCOMYST 20% INH SCH ×3 (06:19→19:23)
[2019-07-28 06:43] LABS: BANDS 2 % (0-1); LYMPHS 4 % (21-51); MONO 1 % (1-9); SEGS 93 % (42-75)
--- NOTE | 2019-07-28 06:49 | PROGRESS NOTE ---
DATE: 07/28/2019 Ms. Daily is sleeping comfortable. OBJECTIVE: Temperature 96.4 degrees, pulse 82, respirations 32, blood pressure 128/73. Pupils are equal and round. Lungs are clear in all lung milian. Cardiovascular: Regular rhythm and rate without murmur or S3. Abdomen is soft. Skin is warm and dry. LABORATORY DATA: This morning, white count 08759, hematocrit is 30, hemoglobin 10.6 which is stable, platelet count 642,000. Chemistries, sodium 139, potassium 3.3, chloride 100, BUN 8, creatinine 0.3. ProBNP was 391. Note that C-reactive protein back in 07/26/2019 was 351.96. TSH was 12.47. Her chest x-ray, she has bilateral airspace consolidations in both lungs. ASSESSMENT AND PLAN: 1. Acute hypoxemic respiratory failure. 2. Acute respiratory distress syndrome. 3. Possible pneumonia. 4. Moderate to large bilateral pleural effusions. 5. It appears patient has an overwhelming pneumonia and may be in part due to vaping, so she is on vancomycin, cefepime and Levaquin. We are checking immunoglobulin levels and pneumococcal antigen. I would like to get some fluid from thoracentesis, 5 to 10 mL of fluid, for diagnostic purposes. She has had an echocardiogram yesterday, appears normal left atrial size, normal left ventricular size, ejection fraction 65 to 70%. Did not see significant valvular dysfunction. She has normal right ventricular size and systolic function. 6. Should also add that she had steatohepatitis and she has a history of thyroid cancer in the past, too. cc: Froy Colon MD
[2019-07-28] MEDS: PRILOSEC PO SCH (07:14)
[2019-07-28] MEDS: SYNTHROID PO SCH (07:15)
--- NOTE | 2019-07-28 07:21 | Diag Imaging Result Doc PS360 ---
EXAM: CHEST-1 VIEW INDICATION: SOB TECHNIQUE: One view COMPARISON: 07/23/2019 FINDINGS: Although consolidations are slightly less dense at the lung bases as compared to the previous study. Overall, there has been worsening. Consolidation is seen now throughout both lungs has worsened significantly at the upper lung zones. There has been development of a small left pleural effusion. Cardiac silhouette is essentially stable. IMPRESSION: Mixed changes as described but overall worsening. Electronically signed by Kd Lechuga 07/28/2019 7:19 AM
[2019-07-28 07:42] LABS: INR 1.53; PROTIME 18.7 Seconds (11.0-16.0)
[2019-07-28 07:44] LABS: PTT 53.9 Seconds (22.3-41.8)
--- NOTE | 2019-07-28 09:50 | Diag Imaging Result Doc PS360 ---
EXAM: US THORACENTESIS W/IMAGE GUIDE INDICATION: pleural effusion TECHNIQUE: COMPARISON: None. FINDINGS: Risks, benefits, and alternatives were discussed with the patient and informed consent was obtained. The patient was prepped and draped in sterile fashion and local anesthesia was achieved with 1% lidocaine solution. Using ultrasound guidance, a large bore catheter was inserted into the right pleural space and 700 mL of blood-tinged serosanguineous fluid was aspirated. There were no known complications. A chest radiograph is to follow. IMPRESSION: Technically successful ultrasound-guided right thoracentesis. Electronically signed by Kd Lechuga 07/28/2019 9:48 AM
--- NOTE | 2019-07-28 10:00 | Diag Imaging Result Doc PS360 ---
EXAM: CHEST-2 VIEWS INDICATION: POST RT THOR TECHNIQUE: 3 views COMPARISON: 07/28/2019 FINDINGS: There is no evidence of pneumothorax status post right thoracentesis. There is less blunting of the right costophrenic angle status post thoracentesis. The chest is stable otherwise with diffuse infiltrates bilaterally. IMPRESSION: No evidence of pneumothorax status post right thoracentesis. Electronically signed by Kd Lechuga 07/28/2019 9:57 AM
[2019-07-28] MEDS: MYCOSTATIN SUSP PO SCH ×4 (10:11→20:44)
[2019-07-28] MEDS: MIRALAX PO SCH (10:11)
[2019-07-28] MEDS: DULCOLAX PO SCH (10:12)
[2019-07-28] MEDS: LEVAQUIN 750 MG/D5W 750 MG/150 ML IVPB IV SCH (10:12)
[2019-07-28 11:47] LABS: TOTAL PROT BODY FLUID 1.9 g/dL
[2019-07-28 11:53] LABS: AMYLASE BODY FLUID 7 U/L; GLUCOSE BODY FLUID 143 mg/dL; LDH BODY FLUID 242 U/L
[2019-07-28 12:05] LABS: SPECIMEN PLEURAL FLUID
[2019-07-28 12:29] LABS: BODY FLUID SOURCE PLEURAL FLUID; WBC BF 284 /cumm
[2019-07-28 12:30] LABS: MONOS 83 %; POLYS 17 %
[2019-07-28] MEDS: MORPHINE IV PRN ×2 (13:48→22:27)
--- NOTE | 2019-07-28 14:18 | INFECTIOUS DISEASE PROGRESS NO ---
DATE: 07/28/2019 PRESENT ILLNESS: The patient has an overwhelming bilateral pneumonia. It appears that the patient is developing oral candidiasis. MEDICATIONS: The patient is receiving a combination of cefepime and vancomycin for 6 days and Levaquin for 1 day. The patient also is on steroids. PHYSICAL EXAMINATION: Vital Signs: Temperature is 98 degrees, pulse 77, respirations 24, blood pressure 133/80. General: This is an ill-appearing, middle-aged female. She does not today appear to be as dyspneic as she was yesterday. Head/eyes/ears/nose/throat: She can hear my spoken words and see near objects. She is beginning to have some white coating on her tongue and her tongue is sore. Neck: No pain with movement. Lungs: Clear to auscultation. Cardiovascular: Heart rate is regular. Abdomen: Soft and nontender. Neurologic: The patient is alert. She talks in a coherent fashion. She can move her extremities. There is no tremor. LAB AND RADIOLOGY: CBC-WBC 10.77, hgb 10.6, platelets 642K. Creatinine- 0.3. GFR-> 60. Chest [id number] worse. ASSESSMENT AND PLAN: The patient appears to have an overwhelming pneumonia. She seems to be developing oral candidiasis now as well. My plan will be to continue the current antimicrobial regimen of cefepime, vancomycin, and Levaquin. The patient's immunoglobulin levels are still pending. I think the patient is beginning to develop oral candidiasis. She says her tongue hurts her and also there appears to be a white coating developing on her tongue, so I am going to start her on nystatin swish and swallow for presumed oral candidiasis. COMORBIDITIES: About the only comorbidity I can find is that the patient does vaping and recently in the news, it is being seen that many people are developing pneumonias who are vaping. The patient also could have an immunoglobulin deficiency, but I will just have to wait until the immunoglobulin levels come back. If patient's levels are low, I will give her IVIG. cc: Javed Barrios MD [facility] CENTERBhumi
[2019-07-28] MEDS ORDERED: AYR NASAL SPRAY NAS PRN (14:51)
[2019-07-29] MEDS: DUONEB (A & A) INH SCH ×7 (00:12→23:04)
[2019-07-29] MEDS: VANCOMYCIN 1,500 MG in NS 250 ML IV SCH ×2 (01:59→13:24)
[2019-07-29] MEDS: SOLU-MEDROL IV SCH ×4 (01:59→18:22)
[2019-07-29] MEDS: MORPHINE IV PRN ×3 (02:31→21:27)
[2019-07-29] MEDS: ZOFRAN IV PRN ×3 (02:31→21:27)
[2019-07-29 04:43] LABS: ALLEN TEST YES; BE 7.8 mmoll (-3.0-3.0); BLOOD TYPE ARTERIAL; METHB 0.7 % (0.0-1.5); O2(CT) 13.2 mL/dL (15.0-23.0); PCO2(98.6) 35 mmHg (35-45); PO2(98.6) 165 mmHg (60-100); SAMPLE BLOOD; SAO2 99.9 % (95.0-100.0); THB 9.3 g/dL (11.5-17.4); pH(98.6) 7.55 (7.35-7.45)
[2019-07-29 04:44] LABS: MODALITY PRB
[2019-07-29 05:22] LABS: AGAP 11; BUN 8 mg/dL (8-22); CALCIUM 8.2 mg/dL (8.8-10.2); CHLORIDE 104 mmol/L (98-107); COSMO 286; CREATININE 0.5 mg/dL (0.5-0.9); ESTIMATED GFR > 60; GLUCOSE 183 mg/dL (70-104); POTASSIUM 3.2 mmol/L (3.5-5.1); SODIUM 142 mmol/L (136-145); TCO2 27 mmol/L (25-35)
[2019-07-29 05:28] LABS: FREE T4 1.05 ng/dL (0.93-1.70); TSH 3.61 uIUmL (0.27-4.20)
[2019-07-29 05:43] LABS: BASO# 0.02 X1000 (0.0-0.2); BASO% 0.2 % (0.0-0.8); EOS# 0.01 X1000 (0.0-0.7); EOS% 0.1 % (0.0-10.0); HEMATOCRIT 26.2 % (37.0-47.0); HEMOGLOBIN 8.9 g/dL (12.0-16.0); IMM GRAN# 0.45 X1000 (0.0-0.04); IMM GRAN% 3.4 % (0.0-0.5); LYMPH% 6.8 % (20.5-51.1); MCH 27.8 PG (27-31); MCV 81.9 FL (81-99); MONO# 0.76 X1000 (0.11-0.59); MONO% 5.8 % (1.7-9.3); MPV 9.5 FL (7.4-10.4); NEUT# 11.04 X1000 (1.4-6.5); NEUT% 83.7 % (42.2-75.2); PLT 657 X1000 (130-400); RDW 14.3 % (11.5-14.5); WBC 13.18 X1000 (4.8-10.8)
[2019-07-29] MEDS: PRILOSEC PO SCH (06:41)
[2019-07-29] MEDS: LOVENOX SUBQ SCH (06:41)
[2019-07-29] MEDS: SYNTHROID PO SCH (06:41)
--- NOTE | 2019-07-29 07:58 | Diag Imaging Result Doc PS360 ---
EXAM: CHEST-1 VIEW INDICATION: SOB TECHNIQUE: One view COMPARISON: 07/28/2019 FINDINGS: Dense airspace consolidations bilaterally are essentially stable. A small effusion on the left is approximately stable. No significant pleural fluid on the right is identified status post yesterday's thoracentesis. No new consolidation is identified. Cardiac silhouette is stable. IMPRESSION: Essentially stable chest. Electronically signed by Kd Lechuga 07/29/2019 7:56 AM
[2019-07-29] MEDS: MUCOMYST 20% INH SCH ×2 (08:19→19:29)
[2019-07-29] MEDS: NS 1,000 ML IV SCH (08:54)
[2019-07-29] MEDS: DULCOLAX PO SCH (08:55)
[2019-07-29] MEDS: MYCOSTATIN SUSP PO SCH ×4 (08:55→20:21)
[2019-07-29] MEDS: MIRALAX PO SCH (08:55)
[2019-07-29] MEDS: PERCOCET-10 PO PRN ×3 (10:33→23:52)
[2019-07-29] MEDS: LEVAQUIN 750 MG/D5W 750 MG/150 ML IVPB IV SCH (10:34)
[2019-07-29] MEDS: POTASSIUM CHLORIDE 20 MEQ/SWI 20 MEQ/100 ML IVPB IV SCH ×2 (12:09→16:43)
[2019-07-29] MEDS: MAXIPIME 2 GM in NS 100 ML IV SCH ×2 (12:09→23:52)
[2019-07-29] MEDS ORDERED: LASIX IV ONE (14:17)
--- NOTE | 2019-07-29 15:00 | INFECTIOUS DISEASE PROGRESS NO ---
DATE: 07/29/2019 PRESENT ILLNESS: The patient has an overwhelming bilateral pneumonia. She also has oral candidiasis. MEDICATIONS: The patient has been on vancomycin and cefepime for 7 days and Levaquin for 2 days. Also yesterday the patient was started on nystatin swish and swallow and the patient also is on high dose of steroids. PHYSICAL EXAMINATION: Vital Signs: Temperature is 99 degrees, pulse 82, respirations 31, blood pressure is 138 over 85. Generally: This is an ill-appearing, middle-aged female. She does not seem to be quite as dyspneic as she was when she came in. Head/eyes/ears/nose/throat: She can hear my spoken words and see near objects. She does have some white coating on her tongue especially the part that is at the base of her tongue. Neck: There is no meningismus. Lungs: Clear to auscultation. Cardiovascular: Regular heart rate. Abdomen: Soft, nontender. Neurologic: The patient is alert. She can move her extremities. She talks in a coherent fashion. She does not have a tremor. LAB AND X-RAY: Chest x-ray continues to show bilateral infiltrates. [place] [address], hemoglobin 8.9, platelet count 657,000. Blood gases show a pH of 7.55, a PO2 of 165, and a pCO2 of 35. Creatinine is 0.5. GFR is greater than 60. IgA is 132, IgG is 666. Urinary Legionella antigen is negative. Pleural fluid: White blood cell count is 284 of which 83% are mononuclear cells. Sputum I think is contaminated. It does not look like it is a good deep specimen. Chest x-ray shows bilateral infiltrates. Pleural fluid: Culture is pending. ASSESSMENT AND PLAN: The patient has an overwhelming pneumonia. I plan on continuing the current antibiotics. The patient's IgG level is slightly low at 666. I think this is such a minimal amount of decrease that it clinically is not important and does not require replenishing with IVIG. The patient also has oral candidiasis, especially on her tongue. I plan to continue nystatin swish and swallow. COMORBIDITIES: Patient does do vaping. As mentioned above, the patient's immunoglobulin level of 666 is so minimal that I doubt it is causing the patient to have an overwhelming pneumonia. cc: Javed Barrios MD
[2019-07-29] MEDS: TYLENOL PO PRN (16:55)
--- NOTE | 2019-07-29 20:28 | PROGRESS NOTE ---
DATE: 07/29/2019 SUBJECTIVE: Patient feels much better today and denies having any acute complaints. She is comfortably sitting in her chair at bedside. OBJECTIVE: Vital Signs: Temperature 99 degrees Fahrenheit, pulse 93 per minute, respiratory rate 30 per minute, blood pressure 127/84, pulse oximetry 96 percent with 6% of oxygen. Cardiovascular: First and second heart sounds are audible without any murmurs or gallops. Respiratory: Bilateral lung air entry is moderately decreased but there are no rales or rhonchi present on auscultation. Gastrointestinal: Abdomen soft and nondistended. Normal bowel sounds are present. DIAGNOSTIC DATA: CBC shows WBC count of 13.10 with 83.7% neutrophils. Platelet count somewhat elevated at 657,000. Rest of the CBC is nondiagnostic. Chemistry showed potassium levels of 3.2. Rest of chemistry is nondiagnostic. IMPRESSION: 1. Acute hypoxemic respiratory failure. 2. Oral candidiasis. 3. Hypokalemia. PLAN: The patient will be continued in the intensive care unit with continuation of cefepime along with vancomycin and levofloxacin intravenously. She will also continue to get methylprednisolone intravenously and will start on nystatin suspension as per Infectious Disease. She will continue to get supportive care and we will replenish her potassium today. We will continue her in intensive care unit and provide her supportive care. Further recommendations will be given as per hospital course. cc: Jermaine Beckwith MD
--- NOTE | 2019-07-29 21:38 | PULMONOLOGY PROGRESS NOTE ---
DATE: 07/29/2019 SUBJECTIVE: The patient is resting comfortably in her bed. She saturates with the high-flow oxygen and also with a nonrebreather. OBJECTIVE: The patient has been afebrile for the last 24 hours. Blood pressure 142/79, heart rate 71, respiratory rate 29, oxygen saturation 100%.HEENT: Pupils are equal and reactive. Oropharynx appears clear. Neck is supple. Chest reveals crackles bilaterally. Cardiac exam: S1, S2. Abdomen is soft. Extremities without edema. DIAGNOSTIC DATA: Chest x-ray reveals bilateral infiltrates. LABORATORY DATA: Arterial blood gas reveals a pH 7.55, pCO2 of 35, PO2 of 165. Immunoglobulin levels reveal slight reduction in the IgG total at 666. Legionella panel is negative. Streptococcal antigen is negative. IMPRESSION: A 43-year-old with: 1. Atypical pneumonia. 2. Hypoxemic respiratory failure. 3. Polycystic kidney disease. 4. Steatohepatitis. PLAN: 1. Continue oxygen for hypoxemic respiratory failure. 2. Continue antibiotics per Infectious Disease. 3. Agree with current steroid dosing. 4. Recommend discontinuing IV fluids. The patient is tolerating p.o. intake. cc: Maurisio Garcia MD
[2019-07-30] MEDS: SOLU-MEDROL IV SCH ×4 (01:13→20:08)
[2019-07-30] MEDS: VANCOMYCIN 1,500 MG in NS 250 ML IV SCH ×2 (01:13→13:54)
[2019-07-30 04:19] LABS: BLOOD TYPE ARTERIAL; SAMPLE BLOOD
[2019-07-30 04:20] LABS: ALLEN TEST YES; BE 9.5 mmoll (-3.0-3.0); HCO3-(ACT) 32.4 mmoll (20.0-26.0); METHB 1.1 % (0.0-1.5); O2HB 97.7 % (95.0-99.0); PCO2(98.6) 35 mmHg (35-45); PO2(98.6) 180 mmHg (60-100); SAO2 99.8 % (95.0-100.0); THB 9.9 g/dL (11.5-17.4)
[2019-07-30 04:25] LABS: pH(98.6) 7.57 (7.35-7.45)
[2019-07-30 04:26] LABS: MODALITY PRB
[2019-07-30] MEDS: DUONEB (A & A) INH SCH ×6 (04:43→23:04)
[2019-07-30] MEDS: LOVENOX SUBQ SCH (05:35)
[2019-07-30] MEDS: ZOFRAN IV PRN ×4 (05:44→20:08)
[2019-07-30] MEDS: MORPHINE IV PRN ×4 (05:44→20:08)
[2019-07-30 05:47] LABS: BASO# 0.04 X1000 (0.0-0.2); BASO% 0.2 % (0.0-0.8); EOS# 0.01 X1000 (0.0-0.7); EOS% 0.1 % (0.0-10.0); HEMATOCRIT 27.9 % (37.0-47.0); HEMOGLOBIN 9.5 g/dL (12.0-16.0); IMM GRAN# 0.94 X1000 (0.0-0.04); IMM GRAN% 5.2 % (0.0-0.5); LYMPH# 0.88 X1000 (1.2-3.4); LYMPH% 4.9 % (20.5-51.1); MCH 28.2 PG (27-31); MCHC 34.1 g/dL (33-37); MCV 82.8 FL (81-99); MONO# 0.85 X1000 (0.11-0.59); MONO% 4.7 % (1.7-9.3); MPV 9.8 FL (7.4-10.4); NEUT% 84.9 % (42.2-75.2); PLT 732 X1000 (130-400); RBC 3.37 XMIL (4.2-5.4); RDW 14.9 % (11.5-14.5); WBC 18.02 X1000 (4.8-10.8)
[2019-07-30 06:08] LABS: MAGNESIUM 1.7 mg/dL (1.5-2.7); PHOSPHORUS 2.7 mg/dL (2.7-4.5)
[2019-07-30 06:29] LABS: AGAP 19; BUN 11 mg/dL (8-22); CALCIUM 8.1 mg/dL (8.8-10.2); CHLORIDE 96 mmol/L (98-107); COSMO 286; CREATININE 0.5 mg/dL (0.5-0.9); ESTIMATED GFR > 60; GLUCOSE 186 mg/dL (70-104); POTASSIUM 3.1 mmol/L (3.5-5.1); SODIUM 141 mmol/L (136-145); TCO2 26 mmol/L (25-35)
[2019-07-30] MEDS ORDERED: MAGNESIUM SULFATE 2 GM/S.W.I. 2 GM/50 ML IVPB IV ONE (06:29)
[2019-07-30] MEDS ORDERED: POTASSIUM CHLORIDE 60 MEQ in NS 500 ML IV ONE (06:29)
[2019-07-30] MEDS: PRILOSEC PO SCH (06:45)
[2019-07-30] MEDS: SYNTHROID PO SCH (06:47)
[2019-07-30 06:53] LABS: LYMPHS 4 % (21-51); MONO 2 % (1-9); NRBC 1 % (0-0); SEGS 92 % (42-75)
[2019-07-30] MEDS: MUCOMYST 20% INH SCH ×2 (07:37→19:23)
--- NOTE | 2019-07-30 07:46 | Diag Imaging Result Doc PS360 ---
CHEST-1 VIEW - 07/30/2019 INDICATION: SOB COMPARISON: 07/29/2019 FINDINGS: There is slight decrease in density of the extensive bilateral reticulonodular infiltrates. Heart size is normal. There are small pleural effusions. IMPRESSION: Improvement in the extensive bilateral infiltrates. Electronically signed by Sy Markham 07/30/2019 7:44 AM
[2019-07-30] MEDS: MIRALAX PO SCH ×2 (08:23→20:07)
[2019-07-30] MEDS: MYCOSTATIN SUSP PO SCH ×5 (08:23→20:08)
[2019-07-30] MEDS: DULCOLAX PO SCH (08:24)
[2019-07-30] MEDS: PERCOCET-10 PO PRN (08:24)
[2019-07-30] MEDS: LEVAQUIN 750 MG/D5W 750 MG/150 ML IVPB IV SCH (10:30)
[2019-07-30] MEDS: LACTULOSE PO SCH ×2 (10:33→20:07)
[2019-07-30] MEDS: MAXIPIME 2 GM in NS 100 ML IV SCH (11:20)
[2019-07-30] MEDS: COLACE PO SCH (20:13)
[2019-07-30] MEDS: COREG PO SCH (20:13)
--- NOTE | 2019-07-30 21:09 | PULMONOLOGY PROGRESS NOTE ---
DATE: 07/30/2019 SUBJECTIVE: The patient is awake and alert. She reports her breathing has improved today. She continues to have cough. She denies significant sputum production. OBJECTIVE: Vital Signs: The patient has been afebrile for the last 24 hours. Blood pressure 154/98, heart rate 86, respiratory rate 21, oxygen saturation 96% on 3 L per nasal cannula. HEENT: Pupils are equal and reactive. Oropharynx appears clear. Neck: Supple. chest: Faint crackles bilaterally. Cardiac: S1-S2. Abdomen: Soft. Extremities: Without edema. LABORATORY AND DIAGNOSTIC DATA: White blood count is 18.0, hemoglobin 9.5, platelet count 732,000. Arterial blood gas reveals a pH of 7.57, pCO2 of 35, PO2 of 180. Sodium 141, potassium 3.1, chloride 96, bicarbonate 26, BUN 11, creatinine 0.5. Chest x-ray reveals slight decrease in bilateral infiltrates. IMPRESSION: A 43-year-old with: 1. Atypical pneumonia. 2. Hypoxemic respiratory failure. 3. Kidney disease. 4. Steatohepatitis. PLAN: 1. Continue current antibiotic and steroid dosing. 2. Balance intake and output. 3. Wean oxygen as tolerated. cc: Maurisio Garcia MD
--- NOTE | 2019-07-30 21:20 | PROGRESS NOTE ---
DATE: 07/30/2019 SUBJECTIVE: The patient is sitting up in bed. She states that she did not sleep well last night. OBJECTIVE: Vital signs: Temperature 99.3 degrees, blood pressure 162/103, heart rate 101, respirations 17, O2 saturation 93% on 3 L nasal cannula. General: This is a middle-aged female sitting up in bed, in no acute distress. Heart: S1, S2 normal. Tachycardic. Lungs: Equal air entry bilaterally. No wheezing. No rales. Abdomen: Positive bowel sounds. Soft, nontender, nondistended. Extremities: No edema, no cyanosis. Neurologic: The patient is alert and oriented x3. LABORATORY DATA: White blood cell count 18, hemoglobin 9.5, hematocrit 27, platelets 732,000. Sodium 141, potassium 3.1, chloride 96, CO2 is 26, BUN 11, creatinine 0.5, glucose 186, magnesium 1.7. ASSESSMENT AND PLAN: 1. Acute hypoxemic respiratory failure. Continue with the current treatment regimen. 2. Bilateral lobe pneumonia. We will continue with antibiotic therapy. 3. Polycystic kidney disease, stable. 4. Constipation. We will start the patient on scheduled laxative therapy. 5. Deep vein thrombosis prophylaxis. Continue on Lovenox. 6. Hypothyroidism. Continue on Synthroid. cc: Lexi Crowley MD
[2019-07-31] MEDS: MAXIPIME 2 GM in NS 100 ML IV SCH ×2 (00:07→14:20)
[2019-07-31] MEDS: VANCOMYCIN 1,500 MG in NS 250 ML IV SCH ×2 (00:07→14:19)
[2019-07-31] MEDS: PERCOCET-10 PO PRN ×2 (00:20→21:29)
[2019-07-31] MEDS: ZOFRAN IV PRN ×3 (00:20→21:30)
[2019-07-31] MEDS: SOLU-MEDROL IV SCH ×5 (00:21→21:29)
[2019-07-31] MEDS: DUONEB (A & A) INH SCH ×6 (03:32→23:36)
[2019-07-31 05:10] LABS: ALLEN TEST YES; BE 7.9 mmoll (-3.0-3.0); BLOOD TYPE ARTERIAL; HCO3-(ACT) 31.1 mmoll (20.0-26.0); METHB 1.1 % (0.0-1.5); O2(CT) 14.7 mL/dL (15.0-23.0); O2HB 96.7 % (95.0-99.0); PCO2(98.6) 33 mmHg (35-45); PO2(98.6) 92 mmHg (60-100); SAMPLE BLOOD; SAO2 99.5 % (95.0-100.0); THB 10.7 g/dL (11.5-17.4)
[2019-07-31 05:16] LABS: MODALITY CANNULA; pH(98.6) 7.57 (7.35-7.45)
[2019-07-31] MEDS: LOVENOX SUBQ SCH (05:45)
[2019-07-31] MEDS: PRILOSEC PO SCH ×2 (05:45→06:06)
[2019-07-31] MEDS: SYNTHROID PO SCH ×2 (05:46→06:06)
[2019-07-31] MEDS: MORPHINE IV PRN ×3 (05:52→17:35)
[2019-07-31 07:34] LABS: BASO# 0.02 X1000 (0.0-0.2); BASO% 0.1 % (0.0-0.8); HEMATOCRIT 29.6 % (37.0-47.0); HEMOGLOBIN 9.9 g/dL (12.0-16.0); IMM GRAN# 0.79 X1000 (0.0-0.04); IMM GRAN% 4.5 % (0.0-0.5); LYMPH# 0.97 X1000 (1.2-3.4); LYMPH% 5.5 % (20.5-51.1); MCH 27.9 PG (27-31); MCHC 33.4 g/dL (33-37); MCV 83.4 FL (81-99); MONO# 0.82 X1000 (0.11-0.59); MONO% 4.7 % (1.7-9.3); MPV 9.7 FL (7.4-10.4); NEUT# 15.02 X1000 (1.4-6.5); NEUT% 85.2 % (42.2-75.2); PLT 762 X1000 (130-400); RBC 3.55 XMIL (4.2-5.4); RDW 15.7 % (11.5-14.5); WBC 17.62 X1000 (4.8-10.8)
[2019-07-31] MEDS: MUCOMYST 20% INH SCH ×2 (08:00→19:27)
[2019-07-31 08:05] LABS: AGAP 13; BUN 12 mg/dL (8-22); CALCIUM 8.3 mg/dL (8.8-10.2); CHLORIDE 100 mmol/L (98-107); COSMO 279; CREATININE 0.5 mg/dL (0.5-0.9); ESTIMATED GFR > 60; GLUCOSE 131 mg/dL (70-104); POTASSIUM 4.1 mmol/L (3.5-5.1); SODIUM 139 mmol/L (136-145); TCO2 26 mmol/L (25-35)
--- NOTE | 2019-07-31 08:45 | Diag Imaging Result Doc PS360 ---
CHEST-1 VIEW - 07/31/2019 INDICATION: SOB COMPARISON: 07/30/2019 FINDINGS: Lung volumes are improved. There are stable extensive bilateral interstitial infiltrates. Stable trace left pleural effusion. Heart size remains grossly normal. IMPRESSION: No significant change from prior. Electronically signed by Sy Markham 07/31/2019 8:43 AM
--- NOTE | 2019-07-31 08:50 | Diag Imaging Result Doc PS360 ---
ABDOMEN FLAT/UPRIGHT - 07/31/2019 INDICATION: constipation COMPARISON: None FINDINGS: There is mild constipation in the colon. No bowel obstruction or free air. No abnormal calcifications. IMPRESSION: Mild constipation but no acute disease. Electronically signed by Sy Markham 07/31/2019 8:47 AM
[2019-07-31] MEDS: MIRALAX PO SCH ×2 (09:36→21:29)
[2019-07-31] MEDS: MYCOSTATIN SUSP PO SCH ×4 (09:37→21:29)
[2019-07-31] MEDS: COREG PO SCH ×2 (09:37→21:29)
[2019-07-31] MEDS: DULCOLAX PO SCH (09:37)
[2019-07-31] MEDS: LACTULOSE PO SCH ×2 (09:37→21:30)
[2019-07-31] MEDS: COLACE PO SCH ×2 (09:38→21:29)
[2019-07-31] MEDS: LEVAQUIN 750 MG/D5W 750 MG/150 ML IVPB IV SCH (09:38)
--- NOTE | 2019-07-31 18:36 | PROGRESS NOTE ---
DATE: 07/31/2019 SUBJECTIVE: The patient states that she did not sleep well last night but states that she feels better from a respiratory standpoint. OBJECTIVE: Vital Signs: Temperature 98.3 degrees, blood pressure 131/83, heart rate 70, respirations 21, O2 saturation 97% on 3 L nasal cannula. General: This is a middle-aged female sitting up in bed in no acute distress. Heart: S1, S2 normal. Regular rate and rhythm. Lungs: Equal air entry bilaterally. No wheezing, no rales. Abdomen: Positive bowel sounds. Soft, nontender, nondistended. Extremities: No edema, no cyanosis. Neuro: The patient is alert and oriented x4. LABS: White blood cell count 17, hemoglobin 9.9, hematocrit 29, platelets 762,000. Sodium 139, potassium 4.1, chloride 100, CO2 26, BUN 12, creatinine 0.5, glucose 131. DATA: Abdominal x-ray shows mild constipation. Chest x-ray, extensive bilateral interstitial infiltrates. Left pleural effusion. ASSESSMENT AND PLAN: 1. Acute hypoxemic respiratory failure. Slowly improving. Continue to treat the underlying pneumonia. 2. Bilateral lobe pneumonia. Continue with antibiotics, bronchodilator therapy and supplemental oxygen. 3. Polycystic kidney disease. Stable. 4. Constipation. Continue with laxative therapy. 5. Hypothyroidism. Continue on Synthroid. 6. Leukocytosis. This may be steroid induced. Continue to monitor closely for improvement. 7. Deep vein thrombosis prophylaxis. Continue on Lovenox. cc: Lexi Crowley MD
--- NOTE | 2019-07-31 19:11 | PULMONOLOGY PROGRESS NOTE ---
DATE: 07/31/2019 SUBJECTIVE: The patient is awake and alert. She has been moved to a floor. She reports minimal sputum production. She does continue to have a cough with inspiration. OBJECTIVE: Oxygen flow rate has been decreased to 2 L per nasal cannula. Blood pressure 131/83, heart rate 70, respiratory rate 21, oxygen saturation 97%. HEENT: Pupils are equal and reactive. Oropharynx appears clear. Neck: Supple. Chest: Reveals bilateral crackles. Cardiac: S1-S2. Abdomen: Is soft. Extremities: Without edema. LABORATORIES: Chest x-ray reveals better inflation, trace left effusion, with stable bilateral infiltrates. IMPRESSION: A 43-year-old with 1. Atypical pneumonia. 2. Hypoxemic respiratory failure. 3. Polycystic kidney disease. 4. Steatohepatitis. 5. Prior tobacco history with e-cigarette use/CBD prior to admission. PLAN: 1. Continue to wean oxygen as tolerated. 2. Continue current antibiotic and steroid dosing. 3. Balance intake and output. 4. Cautioned about the use of electronic cigarettes. cc: Maurisio Garcia MD
[2019-07-31] MEDS: DULCOLAX PR SCH (23:48)
[2019-08-01] MEDS: MAXIPIME 2 GM in NS 100 ML IV SCH ×3 (00:07→14:30)
[2019-08-01] MEDS: MORPHINE IV PRN ×3 (01:48→19:46)
[2019-08-01] MEDS: ZOFRAN IV PRN ×3 (01:48→19:47)
[2019-08-01] MEDS: SOLU-MEDROL IV SCH ×3 (01:48→18:30)
[2019-08-01] MEDS: VANCOMYCIN 1,500 MG in NS 250 ML IV SCH ×2 (02:18→16:20)
[2019-08-01] MEDS: DUONEB (A & A) INH SCH ×6 (03:36→23:14)
--- NOTE | 2019-08-01 06:54 | Diag Imaging Result Doc PS360 ---
CHEST-1 VIEW - 08/01/2019 INDICATION: SOB COMPARISON: 07/31/2019 FINDINGS: There has been slight decrease in density of the extensive bilateral infiltrates. Heart size is normal. There is a trace left pleural effusion. IMPRESSION: Slight decrease in density in the extensive bilateral infiltrates. Electronically signed by Sy Markham 08/01/2019 6:52 AM
[2019-08-01] MEDS: SYNTHROID PO SCH (07:07)
[2019-08-01] MEDS: LOVENOX SUBQ SCH (07:07)
[2019-08-01 07:17] LABS: HEMATOCRIT 29.9 % (37.0-47.0); MCHC 33.4 g/dL (33-37); MCV 83.8 FL (81-99); MPV 9.9 FL (7.4-10.4); PLT 825 X1000 (130-400); RBC 3.57 XMIL (4.2-5.4); RDW 16.1 % (11.5-14.5); WBC 23.79 X1000 (4.8-10.8)
[2019-08-01 07:18] LABS: BASO# 0.03 X1000 (0.0-0.2); BASO% 0.1 % (0.0-0.8); IMM GRAN# 0.77 X1000 (0.0-0.04); IMM GRAN% 3.2 % (0.0-0.5); LYMPH# 0.85 X1000 (1.2-3.4); LYMPH% 3.6 % (20.5-51.1); MONO# 1.15 X1000 (0.11-0.59); MONO% 4.8 % (1.7-9.3); NEUT# 20.99 X1000 (1.4-6.5); NEUT% 88.3 % (42.2-75.2)
[2019-08-01 07:29] LABS: AGAP 12; BUN 14 mg/dL (8-22); CALCIUM 8.3 mg/dL (8.8-10.2); CHLORIDE 101 mmol/L (98-107); COSMO 282; CREATININE 0.5 mg/dL (0.5-0.9); ESTIMATED GFR > 60; GLUCOSE 136 mg/dL (70-104); POTASSIUM 3.9 mmol/L (3.5-5.1); SODIUM 140 mmol/L (136-145); TCO2 27 mmol/L (25-35)
[2019-08-01] MEDS: MUCOMYST 20% INH SCH ×2 (07:46→19:11)
[2019-08-01] MEDS: PRILOSEC PO SCH (08:41)
[2019-08-01 10:10] LABS: LYMPHS 10 % (21-51); MONO 4 % (1-9); SEGS 86 % (42-75)
[2019-08-01 10:11] LABS: LARGE PLATELETS 1+
[2019-08-01] MEDS: MIRALAX PO SCH ×2 (10:26→22:02)
[2019-08-01] MEDS: MYCOSTATIN SUSP PO SCH ×4 (10:27→21:56)
[2019-08-01] MEDS: COREG PO SCH ×2 (10:27→21:56)
[2019-08-01] MEDS: COLACE PO SCH ×2 (10:27→22:01)
[2019-08-01] MEDS: LACTULOSE PO SCH ×2 (10:27→22:02)
[2019-08-01] MEDS: PERCOCET-10 PO PRN (10:36)
[2019-08-01] MEDS ORDERED: ROBITUSSIN-DM PO PRN (10:54)
[2019-08-01] MEDS: LEVAQUIN 750 MG/D5W 750 MG/150 ML IVPB IV SCH (12:31)
--- NOTE | 2019-08-01 15:58 | PROGRESS NOTE ---
DATE: 08/01/2019 SUBJECTIVE: The patient is resting comfortably in bed. She states that she feels better today. OBJECTIVE: Vital Signs: Temperature 98.3 degrees, blood pressure 153/88, heart rate 78, respirations 20, O2 saturations 98% on 2 L nasal cannula. General: This is a middle-aged female sitting up in bed in no acute distress. Heart: S1, S2 normal. Regular rate and rhythm. Lungs: Equal air entry bilaterally. No wheezing. No rales. Abdomen: Positive bowel sounds. Soft, nontender, nondistended. Extremities: No edema, no cyanosis. Neurologic: The patient is alert and oriented x4. LABORATORY DATA: White blood cell count 23, hemoglobin 10, hematocrit 29, platelets 825,000. Sodium 140, potassium 3.9, chloride 101, CO2 of 27, BUN 14, creatinine 0.5, glucose 136. ASSESSMENT AND PLAN: 1. Acute hypoxemic respiratory failure. Slowly improving. The patient is now on 2 L nasal cannula. Continue current treatment. 2. Bilateral lobe pneumonia. Continue with antibiotics and bronchodilator therapy. We will continue to try and wean off the supplemental oxygen. 3. Polycystic kidney disease. Stable. 4. Hypothyroidism. Continue on Synthroid. 5. Constipation. The patient reports that she had a small bowel movement last night. Continue with laxative therapy. 6. Leukocytosis. This is likely steroid induced. 7. Deep vein thrombosis prophylaxis. Continue on Lovenox. 8. Will consult physical therapy. cc: Lexi Crowley MD
[2019-08-01] MEDS: DULCOLAX PR SCH (22:01)
[2019-08-02] MEDS: VANCOMYCIN 1,500 MG in NS 250 ML IV SCH ×2 (01:48→13:48)
[2019-08-02] MEDS: SOLU-MEDROL IV SCH ×3 (01:48→22:09)
[2019-08-02] MEDS: MAXIPIME 2 GM in NS 100 ML IV SCH ×2 (03:00→15:35)
[2019-08-02] MEDS: DUONEB (A & A) INH SCH ×6 (03:13→23:19)
[2019-08-02 04:02] LABS: ALLEN TEST YES; BE 6.4 mmoll (-3.0-3.0); BLOOD TYPE ARTERIAL; HCO3-(ACT) 29.9 mmoll (20.0-26.0); METHB 1.1 % (0.0-1.5); O2HB 96.5 % (95.0-99.0); PCO2(98.6) 34 mmHg (35-45); PO2(98.6) 92 mmHg (60-100); SAMPLE BLOOD; SAO2 99.5 % (95.0-100.0); THB 10.2 g/dL (11.5-17.4); pH(98.6) 7.54 (7.35-7.45)
[2019-08-02 04:03] LABS: MODALITY CANNULA
[2019-08-02] MEDS: ZOFRAN IV PRN (05:16)
[2019-08-02] MEDS: LOVENOX SUBQ SCH (05:16)
[2019-08-02] MEDS: PERCOCET-10 PO PRN ×2 (05:17→22:07)
[2019-08-02] MEDS: SYNTHROID PO SCH (06:34)
[2019-08-02] MEDS: PRILOSEC PO SCH (06:34)
--- NOTE | 2019-08-02 07:25 | Diag Imaging Result Doc PS360 ---
EXAM: CHEST-1 VIEW INDICATION: SOB TECHNIQUE: One view COMPARISON: 08/01/2019 FINDINGS: Bilateral infiltrates continue to decrease slightly in density. No new consolidation is identified. Cardiac silhouette is stable. IMPRESSION: Continued slight improvement. Electronically signed by Kd Lechuga 08/02/2019 7:23 AM
[2019-08-02] MEDS: MUCOMYST 20% INH SCH ×2 (07:30→19:23)
[2019-08-02 07:31] LABS: BASO% 0.2 % (0.0-0.8); HEMATOCRIT 33.1 % (37.0-47.0); HEMOGLOBIN 10.9 g/dL (12.0-16.0); IMM GRAN% 3.7 % (0.0-0.5); LYMPH# 1.74 X1000 (1.2-3.4); LYMPH% 6.4 % (20.5-51.1); MCH 28.1 PG (27-31); MCHC 32.9 g/dL (33-37); MCV 85.3 FL (81-99); MONO% 7.5 % (1.7-9.3); MPV 10.2 FL (7.4-10.4); NEUT# 22.24 X1000 (1.4-6.5); NEUT% 82.2 % (42.2-75.2); PLT 874 X1000 (130-400); RBC 3.88 XMIL (4.2-5.4); RDW 16.9 % (11.5-14.5); WBC 27.06 X1000 (4.8-10.8)
[2019-08-02 07:32] LABS: BASO# 0.05 X1000 (0.0-0.2); EOS# 0.01 X1000 (0.0-0.7); MONO# 2.02 X1000 (0.11-0.59)
[2019-08-02 07:45] LABS: AGAP 14; BUN 15 mg/dL (8-22); CALCIUM 8.9 mg/dL (8.8-10.2); CHLORIDE 101 mmol/L (98-107); COSMO 283; CREATININE 0.6 mg/dL (0.5-0.9); ESTIMATED GFR > 60; GLUCOSE 117 mg/dL (70-104); POTASSIUM 3.6 mmol/L (3.5-5.1); SODIUM 141 mmol/L (136-145); TCO2 26 mmol/L (25-35)
--- NOTE | 2019-08-02 07:53 | INFECTIOUS DISEASE PROGRESS NO ---
DATE: 08/01/2019 PRESENT ILLNESS: The patient has an overwhelming bilateral pneumonia. She also has oral candidiasis, most likely due to her having antibiotics and being on steroids. MEDICATIONS: This is day 10 of cefepime and vancomycin and day 5 of Levaquin. PHYSICAL EXAMINATION: Vital Signs: Temperature is 98.3 degrees, pulse 78, respirations 20, blood pressure 153/88. General: This is somewhat ill-appearing middle-aged female. She does, however, look better than she did a few days ago. She is wearing oxygen by nasal cannula. Head/eyes/ears/nose/throat: She can hear my spoken words and see near objects. The white coating on her tongue it is disappearing. Neck: No pain with movement. Lungs: Clear to auscultation. Cardiovascular: Regular heart rate. Abdomen: Soft and nontender. Neurologic: The patient is alert. She is able to walk. There is no tremor. LAB AND X-RAY: Chest x-ray showed improvement in the patient's infiltrates. [place] [address]. I think that this is most likely due to the fact that she is on steroids. Her hemoglobin is 10. Her platelet count is 825,000. Creatinine is 0.5, GFR is greater than 60. ASSESSMENT: Patient has an overwhelming pneumonia. She is improving. PLAN: I have discontinued Levaquin IV and have put her on Levaquin p.o. As mentioned yesterday, the patient's IgG level of 666 is not clinically significant and does not merit having IVIG infusions. The patient also has oral candidiasis for which I am going to continue nystatin swish and swallow. COMORBIDITIES: The patient does vaping. cc: Javed Barrios MD
[2019-08-02] MEDS: COLACE PO SCH ×2 (08:23→22:09)
[2019-08-02] MEDS: MYCOSTATIN SUSP PO SCH ×4 (08:23→22:08)
[2019-08-02] MEDS: COREG PO SCH ×2 (08:23→22:09)
[2019-08-02] MEDS: MIRALAX PO SCH ×2 (08:24→22:09)
[2019-08-02] MEDS: LACTULOSE PO SCH ×2 (10:37→22:08)
[2019-08-02] MEDS: LEVAQUIN PO SCH (10:37)
--- NOTE | 2019-08-02 20:09 | INFECTIOUS DISEASE PROGRESS NO ---
DATE: 08/02/2019 PRESENT ILLNESS: The patient has an overwhelming bacterial pneumonia. She also has oral candidiasis secondary to being on antibiotics and steroids. MEDICATIONS: This is day 11 of cefepime and vancomycin and day 6 of Levaquin. Patient also is on nystatin swish and swallow for her oral candidiasis. PHYSICAL EXAMINATION: Vital Signs: Temperature is 99 degrees, pulse 85, respirations 20, blood pressure 144/90. General: This is an ill-appearing middle-aged female. She does with each day though look better. Today she is not even wearing any oxygen. Head/eyes/ears/nose/throat: She can hear my spoken words and see near objects. She does not have any white coating on her tongue. Neck: No pain with movement. Lungs: Clear to auscultation. Cardiovascular: Regular heart rate. Abdomen: Soft and nontender. Neurologic: The patient is alert. She is able to walk. She does not have a tremor. LAB AND X-RAY: Chest x-ray continues to show improvement in her infiltrates. Her blood gases show a pH of 7.54, PO2 of 92, pCO2 of 34. The patient's creatinine is 0.6, GFR is greater than 60. CBC shows a white count of 27,060, hemoglobin 10.9 and platelet count 874,000. ASSESSMENT AND PLAN: Patient has an overwhelming pneumonia. She developed oral candidiasis because of multiple antibiotics and steroids. My plan is to continue the antibiotics and also include nystatin. COMORBIDITIES: The patient has been under a lot of stress recently. She did do some vaping but it was only a very small amount. cc: Javed Barrios MD
[2019-08-02] MEDS: DULCOLAX PR SCH (22:09)
[2019-08-03] MEDS: VANCOMYCIN 1,500 MG in NS 250 ML IV SCH ×2 (01:49→13:38)
[2019-08-03] MEDS: DUONEB (A & A) INH SCH ×6 (02:48→23:18)
[2019-08-03] MEDS: MAXIPIME 2 GM in NS 100 ML IV SCH ×2 (03:00→16:52)
[2019-08-03] MEDS: PERCOCET-10 PO PRN ×2 (05:34→21:23)
[2019-08-03] MEDS: SYNTHROID PO SCH (06:21)
[2019-08-03] MEDS: PRILOSEC PO SCH (06:21)
[2019-08-03] MEDS: LOVENOX SUBQ SCH (06:21)
[2019-08-03] MEDS: MUCOMYST 20% INH SCH ×2 (07:07→19:48)
[2019-08-03 07:25] LABS: BASO# 0.06 X1000 (0.0-0.2); BASO% 0.3 % (0.0-0.8); EOS# 0.08 X1000 (0.0-0.7); EOS% 0.4 % (0.0-10.0); HEMATOCRIT 34.7 % (37.0-47.0); HEMOGLOBIN 11.4 g/dL (12.0-16.0); IMM GRAN# 1.15 X1000 (0.0-0.04); IMM GRAN% 5.1 % (0.0-0.5); LYMPH# 2.66 X1000 (1.2-3.4); LYMPH% 11.7 % (20.5-51.1); MCH 28.1 PG (27-31); MCHC 32.9 g/dL (33-37); MCV 85.7 FL (81-99); MONO# 2.39 X1000 (0.11-0.59); MONO% 10.5 % (1.7-9.3); MPV 9.9 FL (7.4-10.4); NEUT# 16.42 X1000 (1.4-6.5); PLT 877 X1000 (130-400); RBC 4.05 XMIL (4.2-5.4); RDW 17.3 % (11.5-14.5); WBC 22.76 X1000 (4.8-10.8)
[2019-08-03 07:37] LABS: LYMPHS 14 % (21-51); MONO 4 % (1-9)
[2019-08-03 07:38] LABS: BANDS 2 % (0-1); LARGE PLATELETS 1+; MYELOCYTES 2 %; SEGS 78 % (42-75)
[2019-08-03] MEDS: COLACE PO SCH ×2 (10:10→21:15)
[2019-08-03] MEDS: COREG PO SCH ×2 (10:10→21:17)
[2019-08-03] MEDS: LEVAQUIN PO SCH (10:10)
[2019-08-03] MEDS: SOLU-MEDROL IV SCH ×2 (10:11→21:17)
[2019-08-03] MEDS: MIRALAX PO SCH ×2 (10:11→21:16)
[2019-08-03] MEDS: MYCOSTATIN SUSP PO SCH ×4 (10:11→21:17)
[2019-08-03] MEDS: LACTULOSE PO SCH ×2 (13:12→21:27)
--- NOTE | 2019-08-03 17:14 | PROGRESS NOTE ---
DATE: 08/03/2019 SUBJECTIVE: She says that she has really had a bad day, feels very weak and tired. Does not feel like she can go home today. Fever is afebrile. OBJECTIVE: Vital signs: Temperature is 98.2 degrees, pulse is 90, respirations 18, blood pressure 122/70. HEENT: Pupils are equal and round. Lungs: Clear in all lung milian. Cardiovascular: Regular rhythm and rate without murmur or S3. Abdomen: Soft. Skin: Warm and dry. Urine output 2600 mL. ASSESSMENT AND PLAN: Overwhelming bacterial pneumonia, also oral candidiasis. She is on antibiotics. Seems to be improving. This is the 11th day of cefepime and vancomycin and day 6 of Levaquin. She is also on nystatin swish and swallow. She think she is doing a little better and hopefully can go home in the morning. Chest x-ray from this morning continues slight improvement. cc: Froy Colon MD
--- NOTE | 2019-08-03 21:03 | INFECTIOUS DISEASE PROGRESS NO ---
DATE: 08/03/2019 PRESENT ILLNESS: Ms. Daily has a severe bacterial pneumonia which has been slow to recover. There is also an oral candidiasis which is improving. MEDICATIONS: Today is day 12 of cefepime 2 g IV every 12 hours, and vancomycin IV per pharmacy dosing, and day 7 of Levaquin 500 mg by mouth daily. She is also on nystatin swish and swallow 4 times a day. PHYSICAL EXAMINATION: Vital Signs: Temperature is 98.2 degrees, pulse rate 90, respiratory rate 18, blood pressure 122/70, O2 saturation 98% on room air. General: This is an ill appearing middle-aged female. She is sitting up in bed, currently in no acute distress. HEENT: Atraumatic, normocephalic. Oral mucous membranes are pink and moist. Conjunctivae are pink. Neck: Supple. Trachea is midline. Cardiovascular: Heart rate and rhythm are regular. Normal sinus rhythm on the monitor. Respiratory: Lung sounds are bilaterally diminished. Abdomen: Soft, flat, nontender. Bowel sounds are active. Neurologic: She is awake, alert, oriented, and able to ambulate independently. LABORATORY AND X-RAY: Today, her white count is 22.76, hemoglobin 11.4, platelet count 877,000. No creatinine today, but that has been running normal. No imaging reports today. ASSESSMENT AND PLAN: Ms. Daily has a severe pneumonia which is getting better very slowly. Today is day 12 of her intravenous antibiotics which we will continue. We will also continue the Levaquin by mouth and nystatin swish and swallow. There is a leukocytosis which, in part, is likely due to the steroid administration. We will get a chest x-ray in the morning in the department. We will also recheck blood work in the morning. These plans have been discussed with and recommended by Dr. Barrios. COMORBIDITIES: Include infrequent vaping. Dictated by ERICKSON Gramajo for Javed Barrios MD cc: Javed Barrios MD
[2019-08-03] MEDS: DULCOLAX PR SCH (21:16)
[2019-08-03] MEDS: ZOFRAN IV PRN (21:24)
[2019-08-04] MEDS: VANCOMYCIN 1,500 MG in NS 250 ML IV SCH ×2 (01:13→14:48)
[2019-08-04] MEDS: MAXIPIME 2 GM in NS 100 ML IV SCH ×2 (03:24→16:53)
[2019-08-04] MEDS: DUONEB (A & A) INH SCH ×6 (03:35→23:40)
[2019-08-04] MEDS: LOVENOX SUBQ SCH (06:04)
[2019-08-04] MEDS: PRILOSEC PO SCH (06:05)
[2019-08-04] MEDS: SYNTHROID PO SCH (06:05)
[2019-08-04] MEDS: PERCOCET-10 PO PRN ×2 (06:06→21:05)
[2019-08-04 07:34] LABS: BASO# 0.04 X1000 (0.0-0.2); BASO% 0.2 % (0.0-0.8); HEMOGLOBIN 11.9 g/dL (12.0-16.0); IMM GRAN# 1.15 X1000 (0.0-0.04); IMM GRAN% 4.4 % (0.0-0.5); LYMPH# 1.01 X1000 (1.2-3.4); LYMPH% 3.9 % (20.5-51.1); MCH 28.5 PG (27-31); MCHC 33.1 g/dL (33-37); MCV 86.1 FL (81-99); MONO# 1.84 X1000 (0.11-0.59); MPV 10.2 FL (7.4-10.4); NEUT# 22.07 X1000 (1.4-6.5); NEUT% 84.5 % (42.2-75.2); PLT 933 X1000 (130-400); RBC 4.18 XMIL (4.2-5.4); RDW 17.7 % (11.5-14.5); WBC 26.11 X1000 (4.8-10.8)
[2019-08-04] MEDS: MUCOMYST 20% INH SCH ×2 (07:34→19:16)
[2019-08-04 07:45] LABS: AGAP 15; ALB/GLOB RATIO 1.6; ALBUMIN 3.9 g/dL (3.5-5.0); ALKALINE PHOSPHATASE 202 U/L (32-104); BUN 23 mg/dL (8-22); CALCIUM 9.4 mg/dL (8.8-10.2); CHLORIDE 102 mmol/L (98-107); COSMO 291; CREATININE 0.6 mg/dL (0.5-0.9); ESTIMATED GFR > 60; GLUCOSE 133 mg/dL (70-104); GOT 28 U/L (10-30); GPT 59 U/L (10-36); POTASSIUM 4.2 mmol/L (3.5-5.1); SODIUM 143 mmol/L (136-145); TCO2 26 mmol/L (25-35); TOTAL BILIRUBIN 0.26 mg/dL (0.20-1.00); TOTAL PROTEIN 6.4 g/dL (6.3-8.3)
[2019-08-04 08:37] LABS: LYMPHS 6 % (21-51); SEGS 94 % (42-75)
[2019-08-04] MEDS: MYCOSTATIN SUSP PO SCH ×6 (08:59→21:05)
[2019-08-04] MEDS: COREG PO SCH ×2 (08:59→21:05)
[2019-08-04] MEDS: LACTULOSE PO SCH ×2 (08:59→21:04)
[2019-08-04] MEDS: MIRALAX PO SCH ×2 (08:59→21:04)
[2019-08-04] MEDS: LEVAQUIN PO SCH (08:59)
[2019-08-04] MEDS: COLACE PO SCH ×2 (08:59→21:03)
--- NOTE | 2019-08-04 11:31 | Diag Imaging Result Doc PS360 ---
EXAM: CHEST-2 VIEWS 08/04/2019 HISTORY: pneumonia TECHNIQUE: PA and lateral chest COMMENT: There is no evidence of acute cardiac or pulmonary disease. Compared to the previous study of 08/02/2019 there has been no significant change in the appearance the chest. IMPRESSION: No evidence of acute disease. Electronically signed by Salbador Ceballos 08/04/2019 11:28 AM
--- NOTE | 2019-08-04 13:48 | PROGRESS NOTE ---
DATE: 08/04/2019 SUBJECTIVE: Ms. Daliy is feeling better. She is still very weak and puny. OBJECTIVE: Temperature 98.2 degrees, pulse 78, respirations 20, blood pressure 102/53. Pupils are equal and round. Lungs are clear anterolateral and posterior. Cardiovascular Examination: Regular rhythm and rate without murmur or S3. Urine output is 2900 mL. Laboratory Data: From today, white count 26,110. Sodium 143, potassium 4.2, chloride 102, BUN 23, creatinine 0.6. ASSESSMENT AND PLAN: 1. Overwhelming bilateral pneumonia with oral candidiasis, doing better. This is day 10 of cefepime and vancomycin, and day 5 of Levaquin, so I am going to decrease the steroids. 2. Anxiety. Aware. 3. Blood pressure appears well controlled. 4. Polycystic kidney disease. 5. History of hypothyroidism. Appears to be euthyroid. cc: Froy Colon MD
[2019-08-04] MEDS: DULCOLAX PR SCH (21:04)
[2019-08-04] MEDS ORDERED: SOLU-MEDROL IV SCH (22:00)
[2019-08-05] MEDS: VANCOMYCIN 1,500 MG in NS 250 ML IV SCH (00:26)
[2019-08-05] MEDS: DUONEB (A & A) INH SCH ×6 (03:09→23:40)
[2019-08-05] MEDS: MAXIPIME 2 GM in NS 100 ML IV SCH (03:21)
[2019-08-05] MEDS: LOVENOX SUBQ SCH (06:19)
[2019-08-05] MEDS: SYNTHROID PO SCH (06:19)
[2019-08-05] MEDS: PRILOSEC PO SCH (06:19)
[2019-08-05] MEDS: MUCOMYST 20% INH SCH ×2 (07:33→19:51)
[2019-08-05] MEDS: MYCOSTATIN SUSP PO SCH ×4 (08:42→20:44)
[2019-08-05] MEDS: LACTULOSE PO SCH ×2 (08:43→20:43)
[2019-08-05] MEDS: COLACE PO SCH ×2 (08:43→20:43)
[2019-08-05] MEDS: MIRALAX PO SCH ×2 (08:43→20:43)
[2019-08-05] MEDS: COREG PO SCH ×2 (08:43→20:44)
[2019-08-05 08:48] LABS: BASO# 0.07 X1000 (0.0-0.2); BASO% 0.4 % (0.0-0.8); EOS# 0.16 X1000 (0.0-0.7); EOS% 0.8 % (0.0-10.0); HEMATOCRIT 33.6 % (37.0-47.0); HEMOGLOBIN 10.8 g/dL (12.0-16.0); IMM GRAN# 1.56 X1000 (0.0-0.04); IMM GRAN% 8.1 % (0.0-0.5); LYMPH% 19.7 % (20.5-51.1); MCH 27.8 PG (27-31); MCHC 32.1 g/dL (33-37); MCV 86.6 FL (81-99); MONO# 2.22 X1000 (0.11-0.59); MONO% 11.5 % (1.7-9.3); MPV 10.6 FL (7.4-10.4); NEUT# 11.52 X1000 (1.4-6.5); NEUT% 59.5 % (42.2-75.2); PLT 771 X1000 (130-400); RBC 3.88 XMIL (4.2-5.4); WBC 19.33 X1000 (4.8-10.8)
[2019-08-05 08:52] LABS: LARGE PLATELETS 1+; LYMPHS 12 % (21-51); MONO 6 % (1-9); SEGS 78 % (42-75)
[2019-08-05] MEDS: PERCOCET-10 PO PRN ×2 (08:53→20:44)
--- NOTE | 2019-08-05 09:21 | PROGRESS NOTE ---
DATE: 08/05/2019 SUBJECTIVE: Ms. Daily is feeling better, a little stronger. Breathing good. Chest x-ray was clear, so we are going to stop her antibiotics. White count is coming down, and she is wondering if she could go home this afternoon. OBJECTIVE: Vital signs: Temp 98.5 degrees, pulse 85, respirations 22, blood pressure 130/78. HEENT: Pupils are equal and round. Lungs: Clear in all lung milian. Cardiovascular: Regular rate and rate without murmur or S3. Abdomen: Soft. Skin: Skin is warm and dry. Urine output: 5500 mL. ASSESSMENT AND PLAN: 1. Overwhelming bilateral pneumonia with oral candidiasis. This is day 11 of cefepime and vancomycin and day 6 of Levaquin, which we are stopping all these antibiotics. 2. Anxiety, improved. 3. Blood pressure, well controlled. 4. Polycystic kidney disease. 5. Hypothyroidism. 6. So hopefully we can go home today. cc: Froy Colon MD
[2019-08-05] MEDS: DULCOLAX PR SCH (20:43)
[2019-08-06] MEDS: PERCOCET-10 PO PRN ×2 (03:57→22:37)
[2019-08-06] MEDS: DUONEB (A & A) INH SCH ×3 (04:55→11:38)
[2019-08-06] MEDS: PRILOSEC PO SCH (06:07)
[2019-08-06] MEDS: SYNTHROID PO SCH (06:07)
[2019-08-06] MEDS: LOVENOX SUBQ SCH (06:07)
[2019-08-06] MEDS: MUCOMYST 20% INH SCH (07:46)
[2019-08-06] MEDS: COREG PO SCH ×2 (09:43→22:37)
[2019-08-06] MEDS: MYCOSTATIN SUSP PO SCH ×4 (09:44→22:37)
[2019-08-06] MEDS: COLACE PO SCH ×2 (09:44→20:38)
[2019-08-06] MEDS: MIRALAX PO SCH ×2 (09:44→20:39)
[2019-08-06] MEDS: LACTULOSE PO SCH ×2 (09:44→20:38)
--- NOTE | 2019-08-06 09:44 | PROGRESS NOTE ---
DATE: 08/06/2019 SUBJECTIVE: She has remained afebrile, but she does complain. She wakes up with sweats at night. She is eating good and she is stronger, getting around and walking without any issues. OBJECTIVE: Vital Signs: Temperature 97.6 degrees, pulse 76, respirations 17, blood pressure 114/77. Eyes: Pupils are equal and round. Neck: No distended neck veins. Lungs: Clear anterior and posterior. Cardiovascular exam: Regular rhythm and rate without murmur or S3. Abdomen: Soft, nondistended. Extremities: No pedal edema. : Urine output was 2200 mL. IMAGING: Chest x-ray from the 12th: No evidence of acute disease, no infiltrate. ASSESSMENT AND PLAN: 1. Treated for bilateral pneumonia with oral candidiasis. She is doing very well. Has finished treatment. 2. Severe anxiety. 3. Hypertension. Blood pressure well controlled. 4. Polycystic kidney disease by report. 5. Hypothyroidism. Appears to be euthyroid on exam. REVIEW OF HER ORDERS: She is on Coreg 12.5 mg q. 12 hours, Colace 100 mg b.i.d., lactulose 30 mL b.i.d., MiraLAX 17 g twice a day, Prilosec 40 mg daily. Encourage physical therapy. Hopefully discharge soon. cc: Froy Colon MD
[2019-08-06] MEDS ORDERED: DUONEB (A & A) INH PRN (15:24)
[2019-08-06] MEDS: DULCOLAX PR SCH (20:38)
[2019-08-07] MEDS: PRILOSEC PO SCH (06:51)
[2019-08-07] MEDS: SYNTHROID PO SCH (06:51)
[2019-08-07] MEDS: LOVENOX SUBQ SCH (06:51)
[2019-08-07] MEDS: PERCOCET-10 PO PRN ×3 (07:27→22:06)
--- NOTE | 2019-08-07 08:18 | PROGRESS NOTE ---
DATE: 08/07/2019 SUBJECTIVE: Ms. Daily is better. She is still having some sweating at night. OBJECTIVE: General: She remains afebrile. She is still pretty weak. Vital Signs: Temp 97.5 degrees, pulse 82, respirations 20, blood pressure 108/73. HEENT: Pupils are equal and round. Lungs: Clear in all lung milian. Cardiovascular: Regular rhythm and rate without murmur or S3. Abdomen: Soft. Skin: Warm and dry. Urine output is 1300 mL. ASSESSMENT AND PLAN: Came in with: 1. Possible bilateral pneumonia and oral candidiasis, and has been treated. Doing well. 2. Severe anxiety. 3. Hypertension. Blood pressure is well controlled. 4. Has been diagnosed with polycystic kidney disease by report. 5. Hypothyroidism, appears euthyroid. She is still weak. Her white count has come down. Solu-Medrol has been stopped already. We will stop the morphine, and get her ready for hopefully being discharged tomorrow. cc: Froy Colon MD
[2019-08-07] MEDS: COLACE PO SCH ×2 (10:08→20:38)
[2019-08-07] MEDS: LACTULOSE PO SCH ×2 (10:08→20:39)
[2019-08-07] MEDS: MIRALAX PO SCH ×2 (10:08→20:39)
[2019-08-07] MEDS: COREG PO SCH ×2 (10:09→22:06)
[2019-08-07] MEDS: MYCOSTATIN SUSP PO SCH ×4 (10:09→22:06)
[2019-08-07] MEDS: DULCOLAX PR SCH (20:38)
[2019-08-07] MEDS ORDERED: CALMOSEPTINE OINTMENT TOP PRN (22:12)
[2019-08-08] MEDS: SYNTHROID PO SCH (06:02)
[2019-08-08] MEDS: PERCOCET-10 PO PRN (06:02)
[2019-08-08] MEDS: PRILOSEC PO SCH (06:02)
[2019-08-08] MEDS: LOVENOX SUBQ SCH (06:03)
--- NOTE | 2019-08-08 09:44 | DISCHARGE SUMMARY ---
ADMISSION DATE: 07/22/2019 DISCHARGE DATE: HISTORY OF PRESENT ILLNESS: Ms. Daily came in on 07/22/2019. She is followed by Dr. Liam Cullen. She had a racing heart rate, headache, shortness of breath, diarrhea for the past week, and has been feeling progressively worse. This is a 43-year-old, female. 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 Came to work, not feeling well. Stated that she had an elevated heart rate, shortness of breath, fever, diarrhea over the last week that had progressively worsened. She arrived to the emergency room, had a temperature of 101.9 degrees, heart rate was 116, O2 saturations 94%. White count was 17,260. The sodium was 132. Had a mild bump in her LFTs. AST was 46, ALT was 38. Plasma lactate level was 1.5. Chest x-ray showed impression of bibasilar infiltrates suggestive of bronchopneumonia, so she was admitted. PAST MEDICAL HISTORY: Includes thyroid cancer in the past. The previous Thursday, had been diagnosed by nephrology with polycystic kidney disease. PAST SURGICAL HISTORY: 1. Thyroidectomy. 2. Bilateral tubal ligation. 3. Breast augmentation. 4. She has had some back surgery. ADMISSION DIAGNOSES: 1. Questionable sepsis with bilateral bronchopneumonia. 2. Mild hyponatremia. 3. Mild elevation in transaminases. HOSPITAL COURSE: Abdominal ultrasound done on 07/22/2019, mildly prominent liver. Essentially unremarkable abdominal ultrasound otherwise. Pulmonary arteriogram done on 07/26/2019 negative for pulmonary embolism, severe bilateral infiltrates, moderately large bilateral pleural effusions, fatty liver. Echocardiogram done on 07/27/2019, normal right ventricular size, normal left ventricular size, ejection fraction of 65 to 70 percent. No significant valvular dysfunction. Infectious disease was consulted. Appeared to be overwhelming pneumonia, and was treated with vancomycin and cefepime and Levaquin. Immunoglobulin was checked as well as pneumococcal antigen. Dr. Vargas was asked to see. He did an ultrasound-guided thoracentesis, technically successful ultrasound-guided right thoracentesis. The patient was on cefepime and vancomycin for 7 days, and Levaquin for 2 days, and so developed some oral thrush. Started her on oral swish and swallow. She showed steady improvement. Chest x-ray on 08/01/2019, slight decrease in density of extensive bilateral infiltrates. Repeat chest x-ray on 08/02/2019, borderline infiltrates continue to decrease slightly in density. No new consolidation. Clinically showed steady improvement. On 08/03/2019, she clinically looked like she was stronger and eating, and felt she was ready to go home on 08/07/2019. Chest x-ray on 08/04/2019, no evidence of acute disease. We will plan to discharge her home. Today is Thursday. I think she can go back to work a week from today. She still feels a little weak and has some sweats at night. She will be on the Coreg 12.5 mg twice a day, Colace 100 mg b.i.d., lactulose 30 mL b.i.d., Synthroid 112 mcg p.o. daily, Mycostatin suspension 5 mL swish and swallow 4 times a day, Prilosec 40 mg a day, Percocet 10s. She can take one q.6 hours. I will give her 20 of those. MiraLAX 17 g p.o. in 8 ounces of water b.i.d. and she can back off as needed on that. No further antibiotics. cc: Froy Colon MD
[2019-08-08] MEDS ORDERED: PNEUMOVAX 23 IM ONE (10:12)
[2019-08-08] MEDS: LACTULOSE PO SCH (10:41)
[2019-08-08] MEDS: COLACE PO SCH (10:41)
[2019-08-08] MEDS: MIRALAX PO SCH (10:42)
[2019-08-08] MEDS: MYCOSTATIN SUSP PO SCH (10:48)
[2019-08-08] MEDS: COREG PO SCH (10:48)
[2019-08-08 11:46] VITALS: BP 123/69
== END 2019-08-08 12:20 | disposition home or self-care (01) | DRG 871 ==
LOC: ED 06:36 → 1N 06:37 → SUATTDRO 06:37 → ICU 07-26 17:24 → 3N 07-30 18:42
PROVIDERS: ATTEND Emergency Medicine